=== PATIENT | female | born 1985 | race Caucasian/White ===

== ENCOUNTER 2020-12-28 19:34 | Inpatient (IN) | payer OTHER ==
[~2020-12-28] VITALS: Ht 165.1 cm; Wt 105.0 kg
--- NOTE | 2020-12-28 19:40 | NUR ---
PT AMBULATED TO ROOM 10 FOR TRIAGE, ASSESSMENT AND TREATMENT.
[2020-12-28 20:18] LABS: HEMATOCRIT 47.4 % (37.0-47.0); HEMOGLOBIN 15.7 g/dl (12.0-16.0); IMMATURE GRANULOCYTES 0.4 % (0.0-5.0); MEAN CELL VOLUME 83.9 fL CALC (80.0-100.0); MEAN CORPUSCULAR HGB 27.8 pG CALC (26.0-32.0); MEAN CORPUSCULAR HGB CONC 33.1 g/dL CAL (32.0-36.0); NEUT# 6.31 thou/uL (2.00-7.15); RED BLOOD COUNT 5.65 mill/uL (4.20-5.60); RED CELL DISTRI WIDTH 13.9 % (11.5-15.5)
--- NOTE | 2020-12-28 20:23 | NUR ---
RT AT BEDSIDE. PT HAS BEEN PLACED ON HIGH FLOW AT 15L VIA NON REBREATHER MASK.
[2020-12-28 20:29] LABS: ALBUMIN 3.8 g/dL (3.2-5.0); ALKALINE PHOSPHATASE 78 u/l (38-126); ANION GAP 19 (6-22 (CALC)); BILIRUBIN, TOTAL 0.6 mg/dL (0.0-1.4); BUN 19 mg/dL (7-17); BUN/CREATININE RATIO 18 (12-20 (CALC)); CARBON DIOXIDE 20 mmol/l (22-30); CHLORIDE 94 mmol/l (95-108); CREATININE 1.1 mg/dL (0.5-1.0); GFR 57 ML/MIN (>=60 (CALC)); GFR FOR AFR.AMER. > 60 ML/MIN (>=60 (CALC)); POTASSIUM 4.1 mmol/l (3.5-5.1); SGOT/AST 33 u/l (14-36); SODIUM 129 mmol/l (137-146); TOTAL PROTEIN 6.9 g/dL (6.3-8.2)
[2020-12-28 20:39] LABS: D-DIMER 0.48 mg/L (0.19-0.60)
[2020-12-28 20:41] LABS: MYOGLOBIN 98 ng/mL (0 - 62)
[2020-12-28 20:42] LABS: ACT PARTIAL THROMBO TIME 26.7 SECONDS (20.0-32.5); INTERNATIONAL NORMALIZED RATIO 0.9 RATIO (0.7-1.3); PROTHROMBIN TIME 9.7 SECONDS (9.0-12.5)
--- NOTE | 2020-12-28 21:14 | NUR ---
Reassessment of patient completed. No distress noted. PT TALKING TO FAMILY ON PHONE.
--- NOTE | 2020-12-28 21:56 | NUR ---
Reassessment of patient completed. No distress noted. Pt sitting up on gurney, for comfort. Discussed use of cpap and ICU admit with patient
--- NOTE | 2020-12-28 22:39 | NUR ---
Admission Note Report Given to: CHETAN Transported by: X Wheelchair Stretcher Transported with: X Nurse Transporter X Patent IV X O2 X Line O Scribe Operator Location: X ICU MS2
[2020-12-28 23:00] VITALS: BP 177/116
--- NOTE | 2020-12-28 23:00 | NUR ---
PATIENT ARRIVED TO UNIT VIA WC INTO ICU 4 AT 2230. ON NRB ON ARRIVAL. ASSISTED UP TO BSC PER PATIENT REQUEST. VOIDED. PATIENT ON HER MENSES, PROVIDED WITH HYGIENE ITEMS. ASSISTED INTO BED AND PLACED ON VAPOTHERM 30 L/ 80% O2 SAT 84% BREATH SOUNDS VERY DIMINISHED THROUGHOUT LUNG REICH. NS INFUISNG INTO LAC IV SITE. JEWELRY ESTIMATOR SHOWS ST. DISCUSSED PLAN OF CARE. PATIENT VERBALIZE UNDERSTANDING, RINFORCE PRN. CALL PLUMMER IN REACH.
[2020-12-28 23:15] VITALS: BP 158/101
[2020-12-28 23:30] VITALS: BP 169/92
[2020-12-29] VITALS (21 sets, daily range): BP systolic 128–216; BP diastolic 78–216
--- NOTE | 2020-12-29 01:00 | NUR ---
UPTO BSC VOIDED WITH MODERATE SOFT BM.
--- NOTE | 2020-12-29 02:15 | NUR ---
O2 SATS 81-82% INCREASED VAPOTHERM TO 40 L/90%
--- NOTE | 2020-12-29 02:50 | NUR ---
O2 SATS CONTINUE TO RUN IN THE LOW 80'S. RT HERE TO EVALUATE PATIENT. PATIENT PLACED ON CPAP BY RT, CPAP 12 CM/FIO2 60%
--- NOTE | 2020-12-29 05:30 | NUR ---
PATIENT HAS HAD 2 PITCHERS OF WATER TO DRINK SINCE SHE ARRIVED ON UNIT AND PROCEEDED TO HAVE A LARGE EMESIS THAT SHOT ACROSS ROOM. BATHED AND LINENS CHANGED. O2 SATS DROP WITH ANY ACTIVITY.
[2020-12-29 05:34] LABS: HEMATOCRIT 49.3 % (37.0-47.0); HEMOGLOBIN 15.9 g/dl (12.0-16.0); IMMATURE GRANULOCYTES 0.2 % (0.0-5.0); MEAN CELL VOLUME 85.1 fL CALC (80.0-100.0); MEAN CORPUSCULAR HGB 27.5 pG CALC (26.0-32.0); MEAN CORPUSCULAR HGB CONC 32.3 g/dL CAL (32.0-36.0); NEUT# 3.8 thou/uL (2.00-7.15); RED BLOOD COUNT 5.79 mill/uL (4.20-5.60); RED CELL DISTRI WIDTH 13.8 % (11.5-15.5)
[2020-12-29 05:58] LABS: ALBUMIN 3.7 g/dL (3.2-5.0); ALKALINE PHOSPHATASE 55 u/l (38-126); BILIRUBIN, TOTAL 0.8 mg/dL (0.0-1.4); BUN 23 mg/dL (7-17); BUN/CREATININE RATIO 22 (12-20 (CALC)); C-REACTIVE PROTEIN 8.3 mg/dL (0-0.9); CHLORIDE 99 mmol/l (95-108); GFR > 60 ML/MIN (>=60 (CALC)); GFR FOR AFR.AMER. > 60 ML/MIN (>=60 (CALC)); SGOT/AST 50 u/l (14-36); SODIUM 133 mmol/l (137-146)
[2020-12-29 06:29] LABS: ANION GAP 24 (6-22 (CALC)); CARBON DIOXIDE 15 mmol/l (22-30); POTASSIUM 5.1 mmol/l (3.5-5.1)
--- NOTE | 2020-12-29 09:21 | NUR ---
0800 AM BLOOD GLUCOSE FINGER STICK 433. GLUCOSE LAB RESULTS 551. SLIDING SCALE INSULIN GIVEN. DR VILLA MADE AWARE.
--- NOTE | 2020-12-29 19:00 | NUR ---
RECEIVED REPORT FROM EAMON RAMOS.
--- NOTE | 2020-12-29 20:00 | NUR ---
PATIENT IS AWAKE IN BED, ALERT AND ORIENTED X3, ABLE TO MAKE NEEDS KNOWN. NO COMPLAINTS OF PAIN VERBALIZED. RESPIRATIONS EVEN, CURRENTLY O2 VIA N/C VAPOTHERM 40L/100%. PATIENT HAS BEEN MAINTAINING SATURATIONS 88-94%. GLASS WORKER SHOWING SR IN THE 90S. VAD LAC INFUSING NS @ 100ML/HR. SKIN WARM AND DRY. URINAL AT BEDSIDE. ASSESSMENT COMPLETED AND CHARTED. BED IN LOW POSITION. CALL LIGHT WITHIN REACH.
--- NOTE | 2020-12-29 20:00 | NUR ---
PATIENT IS AWAKE IN BED, ALERT AND ORIENTED, ABLE TO MAKE NEEDS KNOWN. DENEIS PAIN. RESPIRATIONS EVEN. PATIENT ON CPAP AT 100% O2 AT THIS TIME. SUB ACUTE CARE NURSE ST 110'S. SKIN WARM AND DRY. VAD #20LAC INFUSING NS AT 100ML/HR. PURWICK IN PLACE. ASSESSMENT COMPLETED AND CHARTED. BED IN LOW POSITION. CALL LIGHT WITHIN REACH.
--- NOTE | 2020-12-29 20:16 | NUR ---
RT REPORTS PATIENT CPAP REDUCED FROM 100% TO 70%. O2 SAT 93%.
--- NOTE | 2020-12-29 20:32 | NUR ---
120CC COOL WATER GIVEN. TOLERATED WELL. CPAP PUT BACK IN PLACE. PATIENT TOLERATED WELL.
--- NOTE | 2020-12-29 21:16 | NUR ---
3 UNITS REGULAR INSULIN GIVEN FOR BS 243. 1/2 CUP APPLE JUICE GIVEN.
--- NOTE | 2020-12-29 22:11 | NUR ---
SPOKE WITH FATHER ABOUT PATIENT CONDITION.
--- NOTE | 2020-12-29 23:33 | NUR ---
PATIENT THREW UP IN CPAP MASK ABOUT 100CC LIQUID BROWN EMESIS. PATIENT CLEANED UP, NEW GOWN PUT ON. PATIENT IN NO ACUTE DISTRESS.
[2020-12-30] VITALS (24 sets, daily range): BP systolic 106–185; BP diastolic 60–109
--- NOTE | 2020-12-30 00:30 | NUR ---
BRIEF CHANGED. SATURATED. TOLERATED WELL. PATIENT ON MENSIS.
--- NOTE | 2020-12-30 01:29 | NUR ---
IV ZITHROMYCIN FINISHING, ROCPHIN IV READY TO BE HUNG. NO ACUTE DISTRESS NOTED.
--- NOTE | 2020-12-30 02:27 | NUR ---
PATIENT UNABLE TO RELAX AND SLEEP. ANXIOUS. 1 MG ATIVAN IV GIVEN.
--- NOTE | 2020-12-30 04:12 | NUR ---
PULSE OX UNPLUGGED FROM MONITOR. RECONNECTED. O2 SATURATION 92%.
[2020-12-30 06:18] LABS: HEMATOCRIT 48.7 % (37.0-47.0); HEMOGLOBIN 15.4 g/dl (12.0-16.0); IMMATURE GRANULOCYTES 0.2 % (0.0-5.0); MEAN CELL VOLUME 85.1 fL CALC (80.0-100.0); MEAN CORPUSCULAR HGB 26.9 pG CALC (26.0-32.0); MEAN CORPUSCULAR HGB CONC 31.6 g/dL CAL (32.0-36.0); NEUT# 6.77 thou/uL (2.00-7.15); RED BLOOD COUNT 5.72 mill/uL (4.20-5.60)
[2020-12-30 06:43] LABS: ALBUMIN 3.3 g/dL (3.2-5.0); ALKALINE PHOSPHATASE 67 u/l (38-126); ANION GAP 16 (6-22 (CALC)); BILIRUBIN, TOTAL 0.4 mg/dL (0.0-1.4); BUN 29 mg/dL (7-17); BUN/CREATININE RATIO 27 (12-20 (CALC)); C-REACTIVE PROTEIN 4.7 mg/dL (0-0.9); CARBON DIOXIDE 21 mmol/l (22-30); CHLORIDE 110 mmol/l (95-108); CREATININE 1.1 mg/dL (0.5-1.0); GFR 57 ML/MIN (>=60 (CALC)); GFR FOR AFR.AMER. > 60 ML/MIN (>=60 (CALC)); POTASSIUM 4.3 mmol/l (3.5-5.1); SGOT/AST 43 u/l (14-36); SODIUM 143 mmol/l (137-146); TOTAL PROTEIN 6.2 g/dL (6.3-8.2)
--- NOTE | 2020-12-30 06:44 | NUR ---
PATIENT THREW UP IN MASK AGAIN WITH SMALL AMOUNT BROWN EMESIS. PATIENT BEING CLEANED UP, CHANGED TO VAPOTHERM, GOWN CHANGED. RT AT BEDSIDE CHANGING PATIENT FROM CPAP TO VAPOTHERM.
--- NOTE | 2020-12-30 08:45 | NUR ---
RT MADE AWARE PT O2 SATS 81-84% ON 100% VAPOTHERM. PT INCREASED TO 40L ON VAPOTHERM. 02 SAT 87-88% CURRENTLY.
--- NOTE | 2020-12-30 09:50 | NUR ---
PT O2 SAT 83-84% RT MADE AWARE NOW PT ON C-PAP AT 100%. PT STATES, "I DON'T WANT THE TUBE." DR. OTTO MADE AWARE.
--- NOTE | 2020-12-30 12:35 | NUR ---
DR. OTTO SPOKE WITH PT FATHER VIA TELEPHONE. NOW SPEAKING WITH PT IN REGARDS TO WISHES TO WITHHOLD INTUBATION.
--- NOTE | 2020-12-30 13:06 | NUR ---
PT SIGNED DIRECTION TO WITHDRAW AND/OR WITHHOLD LIFE-SUSTAINING PROCEDURES CONSENT IN REGARDS TO WITHHOLDING RESPIRATORY SUPPORT.
--- NOTE | 2020-12-30 19:16 | NUR ---
SPO2 85% ON VAPO 40L WITH 100%/ NRM. PATIENT DESIRES TO LAY ON HER BELLY FOR SPO2 TO INCREASE. RN AWARE. WILL CALL RT OTHERWISE
--- NOTE | 2020-12-30 20:24 | NUR ---
PATIENT'S OXYGENATION NOT MAINTIANING IN THE 'S. INSTRUCTED AND DEMONSTRATED TO PATIENT HOW TO LYE PRONE. CURRENTLY PRONING. O2 SATURATION 90%. HAS REACHED 99%. NO ACUTE DISTRESS OBSERVED.
--- NOTE | 2020-12-30 22:09 | NUR ---
PATIENT CONTINUES TO SAT AT 84%. PATIENT HAS BEEN REPOSITIONED, SUPINE, WITHOUT IMPROVEMENT. PATIENT DOES NOT WANT THE CPAP. PATIENT IS A DNI. MOUTH SWABS GIVEN TO PATIENT FOR COMFORT. MOUTH VERY DRY.
--- NOTE | 2020-12-30 22:34 | NUR ---
AZITHROMYCIN IV INITIATED, ATIVAN 1 MG IV GIVEN FOR PATIENT COMFORT. IVABT INFUSING AT 125 ML/HR DUE TO VEIN IRRITATION.
--- NOTE | 2020-12-30 22:55 | NUR ---
Oxygen saturation not improving. RT called to place CPAP.
--- NOTE | 2020-12-30 23:00 | NUR ---
Patient took off mask. saturation 79%. RT at bedside.
--- NOTE | 2020-12-30 23:45 | NUR ---
PATIENT AWAKE SITTING ON SIDE OF BED, MASK NOT CONNECTED TO TUBING, TRYING TO GET OOB TO GO TO BATHROOM. INSTRUCTED PATIENT TO LYE BACK DOWN. PATIENT IN BED, BRIEF CHANGED, PATIENT CLEANED UP, BACK TO BED. ALARMS GOING OFF, CALLED RT TO FIX. RT AT BEDSIDE. PATIENT OK.
[2020-12-31] VITALS (20 sets, daily range): BP systolic 97–159; BP diastolic 75–104
--- NOTE | 2020-12-31 00:25 | NUR ---
patient pulled off CPAP. Oxygen saturations dropped to 64%. Mask replaced. Doing better now 87% and rising.
--- NOTE | 2020-12-31 01:50 | NUR ---
SPOKE WITH DR. OTTO ABOUT PATIENT CONDITION. NEW ORDERS RECEIVED. AWAITING PHARMACY VERIFICATION.
--- NOTE | 2020-12-31 02:32 | NUR ---
PATIENT TOOK OFF MASK AGAIN. OXYGEN SATURATION 60%. MASK REPLACE, O2 SATURATION MAINTANING 91%. MORPHINE IV GIVEN WITH POSITIVE EFFECT.
--- NOTE | 2020-12-31 03:09 | NUR ---
PATIENT CONTINUES TO UNFASTEN MASK. MASK CONTINUES TO BE REPLACED. PATIENT NOT TOLERATING WELL.
--- NOTE | 2020-12-31 03:44 | NUR ---
patient unfastened mask again. refastened.
--- NOTE | 2020-12-31 04:09 | NUR ---
0355 RT at bedside to change from CPAP to Vapotherm. Patient not tolerating CPAP. Oxygen 91%.
--- NOTE | 2020-12-31 05:33 | NUR ---
ASSISTED PATIENT TO LAY PRONE. OXYGEN SATURATION IMPROVED. 93%
--- NOTE | 2020-12-31 05:47 | NUR ---
PATIENT TOOK OF VAPOTHERM. OXYGEN FELL INTO THE 30'S. O2 PUT BACK INTO PLACE. PATIENT ASSISTED TO STOMACH. RE-EDUCATED PATIENT ON CONSEQUENCES OF NOT COMPLYING AND NOT WEARING OXYGEN. PATIENT ACKNOWLEDGED THAT SHE WILL IF SHE DOES NOT LISTEN AND WEAR OXYGEN.
[2020-12-31 06:02] LABS: HEMATOCRIT 51.3 % (37.0-47.0); HEMOGLOBIN 16.1 g/dl (12.0-16.0); MEAN CELL VOLUME 87.7 fL CALC (80.0-100.0); MEAN CORPUSCULAR HGB 27.5 pG CALC (26.0-32.0); MEAN CORPUSCULAR HGB CONC 31.4 g/dL CAL (32.0-36.0); RED BLOOD COUNT 5.85 mill/uL (4.20-5.60); RED CELL DISTRI WIDTH 14.3 % (11.5-15.5)
[2020-12-31 06:15] LABS: CREATININE 1.5 mg/dL (0.5-1.0); MAGNESIUM 2.9 mg/dL (1.6-2.3); POTASSIUM 4.3 mmol/l (3.5-5.1)
--- NOTE | 2020-12-31 11:15 | NUR ---
DR OTTO AND CASE MANAGEMENT SPOKING WITH PT IN REGARDS TO PT NOT WANTING DIALYSIS AND WISHES FOR HOSPICE.
--- NOTE | 2020-12-31 11:51 | NUR ---
TRANSPORT TO ARRIVED AROUND 1500.
--- NOTE | 2020-12-31 12:00 | NUR ---
HOSPICE SPEAKING WITH PT VIA TELEPHONE.
--- NOTE | 2020-12-31 18:50 | NUR ---
SBAR RECEIVED FROM RICHARD DOE. PATIENT SITTING UP IN BED WATCHING TELEVISION. ON BIPAP, SATURATION 100%. NO DISTRESS NOTED, DENIES PAIN. CALL LIGHT WITHIN REACH.
--- NOTE | 2020-12-31 23:30 | NUR ---
AJ GONZALES. OFFERED WATER.
[2021-01-01] VITALS (19 sets, daily range): BP systolic 114–178; BP diastolic 62–121
--- NOTE | 2021-01-01 01:20 | NUR ---
BIPAP ALARMING, UPON ENTERING ROOM PATIENT OUT OF BED ATTEMPTING TO PUSH BIPAP MACHINE. WHEN ASKED WHERE WAS SHE TRYING TO GO, SHE REPLIED THAT SHE DIDN'T KNOW. PATIENT ASSISTED BACK TO IN PRONE POSITION. BED ALARM ACTIVATED, CALL LIGHT WITHIN REACH.
--- NOTE | 2021-01-01 02:47 | NUR ---
BIPAP ALARMING. UPON ENTERING ROOM, PATIENT FOUND WITH MASK OFF, SATURATION 89%. ASSISTED WITH MASK BACK ON FACE, SATURATION JEAN TO 99%. PATIENT OFFERED WATER. DENIES PAIN AT THIS TIME. CALL LIGHT WITHIN REACH. BED ALARM ACTIVATED.
--- NOTE | 2021-01-01 04:41 | NUR ---
RESTING QUIETLY IN BED AT THE MOMENT. SATURATION 99% ON BIPAP. CALL LIGHT WITHIN REACH.
[2021-01-01 05:36] LABS: HEMOGLOBIN 15.5 g/dl (12.0-16.0); IMMATURE GRANULOCYTES 0.3 % (0.0-5.0); MEAN CELL VOLUME 88.9 fL CALC (80.0-100.0); MEAN CORPUSCULAR HGB CONC 30.4 g/dL CAL (32.0-36.0); NEUT# 5.7 thou/uL (2.00-7.15); RED BLOOD COUNT 5.74 mill/uL (4.20-5.60); RED CELL DISTRI WIDTH 14.1 % (11.5-15.5)
--- NOTE | 2021-01-01 05:42 | NUR ---
ASSISTED PATIENT TO BSC COMMODE 800ML CLEAR DARK BHARGAV URINE. SPONGE BATH PROVIDE WITH ASSISTANCE, ORAL CARE AND COMPLETE LINEN CHANGE. PATIENT TOLERATED WELL. URINE SAMPLE COLLECTED AT THIS TIME. PATIENT THEN ASSISTED BACK TO BED IN PRONE POSITION, SATURATION 98%. CALL LIGHT WITHIN REACH.
[2021-01-01 06:09] LABS: ALBUMIN 3.3 g/dL (3.2-5.0); BILIRUBIN, TOTAL 0.3 mg/dL (0.0-1.4); C-REACTIVE PROTEIN 1.5 mg/dL (0-0.9); CREATININE 1.4 mg/dL (0.5-1.0); POTASSIUM 4.3 mmol/l (3.5-5.1); TOTAL PROTEIN 6.4 g/dL (6.3-8.2)
[2021-01-01 06:18] LABS: URINE BILIRUBIN - DIPSTICK NEGATIVE (NEGATIVE); URINE BLOOD DIPSTICK LARGE (NEGATIVE); URINE COLOR YELLOW; URINE GLUCOSE - DIPSTICK 250 mg/dL (NEGATIVE); URINE KETONE NEGATIVE (NEGATIVE); URINE LEUK ESTERASE NEGATIVE (NEGATIVE); URINE PH 5.5 (4.5-8.0); URINE PROTEIN - DIPSTICK 30 mg/dL (NEG-TRACE); URINE SPECIFIC GRAVITY 1.025; URINE UROBILINOGEN - DIPSTICK 0.2 E.U./dL (0.2)
[2021-01-01 06:28] LABS: URINE NITRITE - DIPSTICK NEGATIVE (Negative)
[2021-01-01 06:30] LABS: URINE RBC >100 RBC/hpf (0-5); URINE WBC 0-2 WBC/hpf (0-5)
[2021-01-01 06:31] LABS: URINE SQUAMOUS EPITHELIAL CELL FEW EPI/hpf (0-FEW)
--- NOTE | 2021-01-01 07:00 | NUR ---
RECEIVED REPORT FROM RICHARD BERTRAND AT THIS TIME PATIENT IN BED WITH BI-PAP ON AND IN STABLE CONDITION.
--- NOTE | 2021-01-01 07:37 | NUR ---
placed pt on hhfnc for breakfast. miladys well at this time. rn in room c rt and pt. maintenance supervisor mechanical to monitor.
--- NOTE | 2021-01-01 08:00 | NUR ---
PATIENT SITTING UP IN BED AT THIS TIME BI-PAP ON AND SETTING ARE 20/10 32/100% AND SPO2 WAS 100%. PATIENT DENEIS ANY PAIN AT THIS TIME. EQUAL OPPORTUNITY OFFICER DONE SEE INTERVENTIONS. NO VISABLE EDEMA NOTED. PATIENT CURRENTLY IS ON DAY 2 OF HER MENSE AND STATES IT USUALLY LAST 5 DAYS. LUNG REICH REMAIN DIMINISHED IN ALL REICH AT THIS TIME. PATIENT WAS COVERED WITH 1UNIT OF NOVOLOG SLIDING SCALE INSULIN FOR A ACCU CHECK OF 172 AT THIS TIME. SIDERAILS ARE UP CALL LIGHT WITHIN REACH. PATIENT IS ALERT AND ORIENTED. VTC TECHNICIAN SHOWING S/R AT HR OF 84. WILL CONTINUE TO MONITOR.
--- NOTE | 2021-01-01 08:50 | NUR ---
PATIENT AT THIS TIME RETURNED BACK ON BI-PAP AND SPO2 IS 94% AT THIS TIME.
--- NOTE | 2021-01-01 10:00 | NUR ---
PATIENT ASSISTED TO BEDSIDE COMMODE AT THIS TIME. PATIENT DID HAVE 1 SMALL LOOSE DARK BROWN BM AND URINATED. PATIENT WAS THEN ASSISTED TO CHAIR AT THIS TIME BI-PAP REMAINS ON PATIENT SPO2 IS 98% AT THIS TIME. CALL LIGHT IS WITHIN REACH.
--- NOTE | 2021-01-01 10:28 | NUR ---
pt on niv in chair at bedside. sap business objects developer to monitor. nad.
--- NOTE | 2021-01-01 11:42 | NUR ---
PATIENT REMAINS UP IN CHAIR AT THIS TIME. PATIENT SWITCHED FROM BI-PAP TO VAPO-THERM FOR LUNCH AT THIS TIME. REMINDED PATIENT TO CONTINUE TO BREATH THROUGH HER NOSE AND SLOW HER BREATHING DOWN. PATIENT IS COMPLIANT WITH INSTRUCTIONS AND WILL CONTINUE TO MONITOR.
--- NOTE | 2021-01-01 12:56 | NUR ---
PATIENT REMAINS UP IN THE CHAIR AT THIS TIME. VAPO THERM ON AT 40L/100% AND SPO2 IS CURRENTLY 95%. PATIENT DENIES ANY PAIN AND IS EATING LUNCH AT THIS TIME. LAUNDRY ROOM ATTENDANT REACHING S/R HEART RATE OF 86 AT THIS TIME. CALL LIGHT IS WITHIN REACH.
--- NOTE | 2021-01-01 13:30 | NUR ---
PATIENT ASSITED TO BEDSIDE COMMODE AT THIS TIME ZACK URINATED 500 CC OF CLEAR YELLOW URINE AT THIS TIME. PATIENT THEN ASSISTED TO BED AT THIS TIME AND PLACED BACK ON BI-PAP AT THIS TIME. PATIENT TOLERATED MOVEMENT AND SPO2 REMAINED AT 97% AT THIS TIME. WILL CONTINUE TO MONITOR.
--- NOTE | 2021-01-01 13:36 | NUR ---
pt on niv at this time. nad. vss. home office claim specialist to monitor.
--- NOTE | 2021-01-01 13:43 | NUR ---
RESPIRATORY IN ROOM WITH PATIENT AT THIS TIME TO TRY PATIENT ON A VENTED MASK AT THIS TIME. WILL CONTINUE TO MONITOR.
--- NOTE | 2021-01-01 13:52 | NUR ---
per pt requst, system designer placed on o2 mask (venturi mask) at 05 fio2@15lpm. when pt is not moving spo2=87. pt states she feels so much better on this mask. system designer informed pt we will reasess at 150. pt and rn in agreement. system designer to monitor.
--- NOTE | 2021-01-01 14:00 | NUR ---
RT IN TO REPLACE VENTI MASK AND REPLACE BACK ONTO BI-PAP AT THIS TIME. WILL CONTINUE TO MONITOR.
--- NOTE | 2021-01-01 14:07 | NUR ---
PLACED BACK ON NIV PER PT SPO2. TITRATED PARAMTERS PER PT SPO2, AND COMFORT, NAD,VSS, LEATHER PRODUCTION ARTISAN TO MONITOR. RN AWARE OF ALL INFO COMMUNICATED IN THIS RECORD.
--- NOTE | 2021-01-01 14:07 | NUR ---
RT LAYTON SET BI-PAP SETTING TO 16/8 AT 80% AND SPO2 AT THIS TIME IS 97% AT THIS TIME. PATIENT RESTING AT THIS TIME. SIDERAILS ARE UP CALL LIGHT IS WITHIN REACH.
--- NOTE | 2021-01-01 16:00 | NUR ---
PATIENT RESTING COMFORTABLY IN BED AT THIS TIME. PATIENT REMAINS ON BIPAP AND SPO2 CURRENTLY IS 92%. ILLUSTRATOR SET SHOWING HR AT 84 BEATS/MIN AND BP CURRENTLY IS 147/99. SIDERAILS ARE UP X 2 CALL LIGHT IS WITHIN REACH. WILL CONTINUE TO MONITOR.
--- NOTE | 2021-01-01 16:40 | NUR ---
ACCU CHECK READING AT THIS TIME IS 282. PATIENT COVERED WITH 5 UNITS OF SLIDING SCALE NOVOLOG AT THIS TIME.
--- NOTE | 2021-01-01 17:29 | NUR ---
PATIENT ASSISTED TO BEDSIDE COMMODE AND TO RECLINERR AT THIS TIME. PATIENT NOW ON VAPO-THERM AND SPO2 IS 90% WILL CONTINUE TO MONITOR.
--- NOTE | 2021-01-01 17:30 | NUR ---
PATIENT UP IN CHAIR AT THIS TIME TRANSFER TABLE OPERATOR READING S/R AND HR OF 78 BP AT THIS TIME IS 155/93 VAPO THERM ON PATIENT AND SPO2 READING AT 98% CURRENTLY PATIENT SET UP FOR DINNER AT THIS TIME AND TOLERATING WATER.
--- NOTE | 2021-01-01 19:30 | NUR ---
pt awake in recliner; no apparent distress noted; pt offers no complaints; assessment completed at this time; pt alert and oriented; admits to pain in mouth; tongue noted dry but no sores apparent; no n/v noted; resp even and unlabored; lungs coarse throughout; skin color wnl; o2 per vapotherm at 40L and 100%; o2 sat 92%; dental officer dry cough noted; pt very talkative with no sob noted at this time; hr reg; strong pulses; no edema noted; st on monitor; abd soft with bs present; no bm noted per physician underwriter; pt admits to voiding without complication; no urine to inspect at this time; bsc; #20 flushed and patent to lac; no redness or edema noted at site; plan of care/ meds explained; ice water provided per pt request; call light within reach; will continue to monitor
--- NOTE | 2021-01-01 20:10 | NUR ---
awake in recliner; offers no complaints; sr on monitor; vapotherm continued; will continue to monitor
--- NOTE | 2021-01-01 20:30 | NUR ---
pm meds explained and administered; ice water provided as per request; #22 started to rw x1 attempt; #20 removed from lac; no redness or edema noted; snack provided; pt assisted to bsc; voided 600cc clear dk yellow urine; pt assisted back to bed; pt with frequent demands/ needs; reassured; will continue to monitor
--- NOTE | 2021-01-01 21:50 | NUR ---
pt noted with vapotherm off; o2 sat 30s; pt noted cyanotic; vapotherm placed in mouth and bipap applied at 100%; pt alert; o2 sat recovered quickly to mid 90s; importance of leaving oxygen in place; pt with excuses as to why she has removed o2/why she cant wear the bipap; RT at bedside; bipap applied; settings per RT; 16/8, 80% FiO2, rate of 22; o2 sat up o 96%; sr on monitor; will continue to monitor
--- NOTE | 2021-01-01 22:02 | NUR ---
received call from Shyla Ramirez; passcode verified; update provided; will continue to monitor
[2021-01-02] VITALS (23 sets, daily range): BP systolic 106–149; BP diastolic 59–95
--- NOTE | 2021-01-02 | NUR ---
resting in bed with eyes closed; no apparent distress noted; bipap intact and maintained; sr on monitor; iv intact and patent; call light within reach; will continue to monitor
--- NOTE | 2021-01-02 01:05 | NUR ---
o2 sat noted low 80s; rt at bedside; bipap changed to 100% FiO2; will continue to monitor closely
--- NOTE | 2021-01-02 02:00 | NUR ---
resting with eyes closed; bipap intact with 100% FiO2; iv intact; sr on monitor; call light within reach; will continue to monitor
--- NOTE | 2021-01-02 04:20 | NUR ---
awake in bed; offers no complaints; iv intact; sr on monitor; bipap intact and maintained; call light within reach
[2021-01-02 05:35] LABS: HEMATOCRIT 47.7 % (37.0-47.0); HEMOGLOBIN 14.9 g/dl (12.0-16.0); MEAN CELL VOLUME 86.6 fL CALC (80.0-100.0); MEAN CORPUSCULAR HGB CONC 31.2 g/dL CAL (32.0-36.0); RED BLOOD COUNT 5.51 mill/uL (4.20-5.60); RED CELL DISTRI WIDTH 13.5 % (11.5-15.5)
[2021-01-02 06:01] LABS: BUN 28 mg/dL (7-17); BUN/CREATININE RATIO 26 (12-20 (CALC)); CARBON DIOXIDE 26 mmol/l (22-30); CHLORIDE 106 mmol/l (95-108); CREATININE 1.1 mg/dL (0.5-1.0); GFR 57 ML/MIN (>=60 (CALC)); GFR FOR AFR.AMER. > 60 ML/MIN (>=60 (CALC)); POTASSIUM 4.1 mmol/l (3.5-5.1)
--- NOTE | 2021-01-02 06:05 | NUR ---
awake in bed; offers no complaints; bipap intact and maintained; sr on monitor; call light within reach
[2021-01-02 06:18] LABS: ANION GAP 11 (6-22 (CALC)); MAGNESIUM 1.9 mg/dL (1.6-2.3); SODIUM 139 mmol/l (137-146)
--- NOTE | 2021-01-02 07:00 | NUR ---
BSSR RECIEVED FROM RICHARD JONES. PT RESTING IN BED WITH EYES CLOSED. VSS, CALL LIGHT WITHIN REACH. DOES NOT APPEAR TO BE EXHIBITING ANY DISTRESS. SAFETY REVIEWED. WILL CONTINUE TO MONITOR.
--- NOTE | 2021-01-02 07:52 | NUR ---
pt placed on hhfnc or breakfast. rn in room c lens grinder and pt. pt to lwell. verbalizd understanding of deep breathing edeucation. rt to monitor.
--- NOTE | 2021-01-02 12:00 | NUR ---
PT RESTING WITH EYES CLOSED, WAITING TO EAT AFTER "NAP" WILL HOLD TRAY. PT CURRENTLY ON VAPOTHERM, REQUESTING TO BE PLACED BACK ON BIPAP WHILE RESTING. SPO2 QUICKLY RISES TO 95%. SETTING UNCHANGED. PT DENIES PAIN, SOB OR DISCOMFORT. CALL LIGHT WITHIN REACH. INSTRUCTED PT TO CALL FOR ASSISTANCE, VERBALIZES UNDERSTANDING.
--- NOTE | 2021-01-02 12:46 | NUR ---
will place on hhfnc for lunch. tower truck driver to monitor.
--- NOTE | 2021-01-02 18:19 | NUR ---
PT REQUESTING TO KNOW THE STATUS OF BROTHER WHO IS ALSO SICK IN SAME FACILITY. FAMILY NOTIFIED AT THIS TIME, FATHER (ANGELO) NOTIFIED AND STATES HE WILL UPDATE PATIENT ON FAMILY STATUS.
--- NOTE | 2021-01-02 19:18 | NUR ---
ASSESSMENT DONE O2 CHANGED FROM BIPAP TO VAPOTHERM 40L 100% FIO2 SO SHE CANEAT MONITOE SHOWS SR 81. IV HEP LOCKED COOPERATIVE STATES SHE WILL FOLLOW REQUESTS TONIGHT
--- NOTE | 2021-01-02 20:00 | NUR ---
BACK ON BIPAP 100% 16/8 SAT 94%
--- NOTE | 2021-01-02 21:02 | NUR ---
RESTING WITH EYES CLOSED MONITOR SHOWS SR RATE 71 O2 SAT 89
--- NOTE | 2021-01-02 21:59 | NUR ---
RESTING IN BED EYES OPEN
--- NOTE | 2021-01-02 22:01 | NUR ---
MOTHER CALLED TO ASK ABOUT PT CODE GIVEN UPDATED VIA PHONE
--- NOTE | 2021-01-02 22:18 | NUR ---
PT REFUSES TO PRONE
--- NOTE | 2021-01-02 23:40 | NUR ---
RESTING WITH EYES CLOSED OW SAT 84-89% ON BIPAP 100% 16/8 MONITOR SHOWS SR
[2021-01-03] VITALS (24 sets, daily range): BP systolic 110–158; BP diastolic 73–98
--- NOTE | 2021-01-03 00:37 | NUR ---
UP TO BSC AND BACK TO BED WITH 1 ASSIST TOLERATED WELL
--- NOTE | 2021-01-03 01:09 | NUR ---
remains awake watching tv voices no c/o
--- NOTE | 2021-01-03 01:41 | NUR ---
RESTING WITH EYES CLOSED O2 SAT 83%. ROUSED PT TOLD HER TO LIE ON HER STOMACH OR SIDE REFUSES
--- NOTE | 2021-01-03 02:48 | NUR ---
BIPAP OFF OF SHORT MOMENT FOR SIPS OF WATER ORAL MUCOSA PINK AND DRY NO SORES NOTED
--- NOTE | 2021-01-03 03:43 | NUR ---
RESTING IN BED WITH EYES CLOSED MONITOR SHOWS SR RATE 68 O2 SAT 91%
--- NOTE | 2021-01-03 04:35 | NUR ---
LABS DRAWN BY PHLEBOTOMY
[2021-01-03 04:46] LABS: HEMATOCRIT 44.6 % (37.0-47.0); HEMOGLOBIN 14.2 g/dl (12.0-16.0); IMMATURE GRANULOCYTES 0.3 % (0.0-5.0); MEAN CELL VOLUME 84.3 fL CALC (80.0-100.0); MEAN CORPUSCULAR HGB 26.8 pG CALC (26.0-32.0); MEAN CORPUSCULAR HGB CONC 31.8 g/dL CAL (32.0-36.0); NEUT# 8.78 thou/uL (2.00-7.15); RED BLOOD COUNT 5.29 mill/uL (4.20-5.60); RED CELL DISTRI WIDTH 13.2 % (11.5-15.5)
[2021-01-03 05:06] LABS: ALBUMIN 2.8 g/dL (3.2-5.0); ALKALINE PHOSPHATASE 48 u/l (38-126); ANION GAP 11 (6-22 (CALC)); BUN 26 mg/dL (7-17); BUN/CREATININE RATIO 30 (12-20 (CALC)); C-REACTIVE PROTEIN 1.2 mg/dL (0-0.9); CARBON DIOXIDE 26 mmol/l (22-30); CHLORIDE 103 mmol/l (95-108); CREATININE 0.9 mg/dL (0.5-1.0); GFR > 60 ML/MIN (>=60 (CALC)); GFR FOR AFR.AMER. > 60 ML/MIN (>=60 (CALC)); POTASSIUM 3.7 mmol/l (3.5-5.1); SGOT/AST 22 u/l (14-36); SODIUM 136 mmol/l (137-146); TOTAL PROTEIN 5.5 g/dL (6.3-8.2)
[2021-01-03 05:20] LABS: BILIRUBIN, TOTAL 0.5 mg/dL (0.0-1.4)
--- NOTE | 2021-01-03 05:41 | NUR ---
PT AWAKE WATCHING TV VOICES N0 C/O
--- NOTE | 2021-01-03 06:17 | NUR ---
awake sitting up in bed watching tv
--- NOTE | 2021-01-03 08:00 | NUR ---
PATIENT IS A/OX3, ABLE TO MAKE NEEDS KNOWN TO STAFF. GOT HER OUT OF BED AND INTO THE CHAIR FOR BREAKFAST. PLACED VAPOTHERM 40L 100%. DENIES PAIN OR DISCOMFORT AT THIS TIME. 3MM PERRLA, BRISK BILATERAL EYES. NORMAL HEART SOUNDS, NORMAL SINUS RYTHEM PER MONITOR READINGS. DIMINISHED LUNG SOUNDS THROUGHOUT. ACTIVE BOWEL SOUNDS. SOFT, OBESE, NON TENDER ABDOMEN. NO EDEMA PRESENT AT THIS TIME. EUQLA STRONG HAND RESOURCING CONSULTANT, NO ARM OR LEG DRIFTS NOTED. STRONG PULSES. EDUCATION WAS PORVIDED ON OXYGEN DEVICES. SAFETY MEASURES IN PLACE. CALL LIGHT IN REACH. WILL COTNINUE TO MONITOR PER HOSPITAL'S PROTOCOL.
--- NOTE | 2021-01-03 10:00 | NUR ---
PATIENT USED THE CALL LIGHT TO INFORM ME SHE IS "NODDING OFF AND WANT TO TAKE A NAP IN BED". SHE ALOS STATED THAT SHE UNDERSTANDS OUR GOAL FOR TODAY IS TO STAY UP IN THE CHAIR MUCH POSSIBLE AND THAT WHEN SHE WAKES UP FROM HER NAP SHE WILL BE SITTING IN THAT CHAIR WITH VAPOTHERM ON. SHE IS CURENTLY ON THE BIPAP MACHINE TO PREVENT HER FROM DROPPING IN HER O2 LEVELS. BED SHEETS WERE CHANGED TO CLEAN ONES PRIOR TO GETTING INTO BED. WHEN OFFERED HER A BED BATH SHE STATED SHE WILL HOLD OFF ON THAT TILL LATER IN THE DAY.
--- NOTE | 2021-01-03 12:00 | NUR ---
PATIENT IS UP TO THE CHAIR, WITH VAPOTHERM. EATING HER LUNCH. O2 SATS ARE STABLE.
--- NOTE | 2021-01-03 13:54 | NUR ---
PATIENT IS GIVING HERSELF A BEDBATH. INFORMED HER THAT SHE NEEDS TO DO IT HERSELF AND WHAT SHE CANT DO I WILL HELP HER WITH. I WANT HER TO DO BETTER AND NOT DEPEND ON US FOR THINGS SHES CAPABLE OF DOING HERSELF. AFTER EXPLAINING HER MY REASONING SHE STATED SHE UNDERSTOOD, CALL LIGHT WITHIN HER REACH. BED BATH SET HER FOR HER WITH WARM WATER.
--- NOTE | 2021-01-03 14:20 | NUR ---
PATIENT WASHED HERSELF UP, DECLINED ANY NEED FOR FURTHER ASSIATNCE WITH BEDBATH. GOT HER BACK UP IN BED WITH VAPOTHERM 40L 100% CONTINUED. FRESH ICE WATER AND MILK PER HER REQUEST. BED SHEETS WERE CHANGED AGAIN, SHE HAD AN ACCIDENT AND URINATED ON THE BED.
--- NOTE | 2021-01-03 16:00 | NUR ---
PATIENT IS SLEEPING IN CHAIR.
--- NOTE | 2021-01-03 18:00 | NUR ---
PATIENT FINISHED HER DINNER, REQUESTED TO GET BACK IN BED. INFORMED HER IF SHE DOES SO WE WILL NEED TO PUT THAT BIPAP MASK BACK ON BECAUSE SHE DOES DROP TO THE MID TO LOW 70'S IN THE BED WITH JUST THE VAPOTHERM ON. SHE STATED OKAY, I UNDERSTAND I STILL WOULD LIKE TO GET IN BED. PATIENT USED BSC, GOT BACK IN BED AND BIPAP WAS PLACED BACK ON HER.
--- NOTE | 2021-01-03 18:45 | NUR ---
GAURAVAR RECEIVED FROM RICHARD CANDELARIA. PATIENT RESTING QUIETLY IN BED. NO DISTRESS NOTED. DENIES PAIN. CALL LIGHT WITHIN REACH.
--- NOTE | 2021-01-03 19:45 | NUR ---
ASSESSMENT COMPLETE. PATIENT SITTING UP IN BED WATCHING TV. PATIENT ON BIPAP 17/11, RATE 44, 100%; TOLERATING WELL. FLUIDS OFFERED. DENIES PAIN AT THIS TIME NO DISTRESS NOTED. CALL LIGHT WITHIN REACH.
--- NOTE | 2021-01-03 21:12 | NUR ---
PM MEDS ADMINISTERED TOLERATED WELL. PATIENT REQUESTED SLEEPING MED ALSO. FLUIDS GIVEN, OFFERED TOILETING BUT DENIED. INSTRUCTED TO POSITION RIGHT LATERAL, SATURATION JEAN TO 92%. PATIENT DENIES CONCERNS AT THIS TIME AND VERBALIZES NEEDS ARE MET AT THIS TIME. CALL LIGHT WITHIN REACH, INSTRUCTED TO CALL FOR ASSISTANCE.
--- NOTE | 2021-01-03 22:53 | NUR ---
ASSIST TO BSC, VOIDED 700ML CLEAR BHARGAV URINE WITHOUT DIFFICULTY. PATIENT SHORT OF BREATH WITH EXERTION, DE-SAT TO LOW 80'S. RECOVERS WELL WHEN BIPAP APPLIED. ANTIBIOTICS ADMINISTERED. FLUIDS OFFERED BUT DECLINES. NO CONCERNS EXPRESSED AT THIS TIME. CALL LIGHT WITHIN REACH.
[2021-01-04] VITALS (13 sets, daily range): BP systolic 122–160; BP diastolic 72–97
--- NOTE | 2021-01-04 00:26 | NUR ---
PATIENT RESTING QUIETLY IN BED. NO DISTRESS NOTED. CALL LIGHT WITHIN REACH.
--- NOTE | 2021-01-04 01:26 | NUR ---
RESTING QUIETLY. SATURATION DROPPED TO 85%, NO DISTRESS NOTED. ASSISTED TO PRONE POSITION, RECOVERED WELL SATURATION JEAN TO 97%.
--- NOTE | 2021-01-04 04:38 | NUR ---
RESTING QUIETLY EYES CLOSED. NO DISTRESS NOTED. CALL LIGHT WITHIN REACH.
[2021-01-04 05:04] LABS: HEMOGLOBIN 14.3 g/dl (12.0-16.0); MEAN CELL VOLUME 82.5 fL CALC (80.0-100.0); MEAN CORPUSCULAR HGB 27.4 pG CALC (26.0-32.0); MEAN CORPUSCULAR HGB CONC 33.3 g/dL CAL (32.0-36.0); RED BLOOD COUNT 5.21 mill/uL (4.20-5.60); RED CELL DISTRI WIDTH 12.9 % (11.5-15.5)
[2021-01-04 05:09] LABS: ANION GAP 10 (6-22 (CALC)); BUN 28 mg/dL (7-17); BUN/CREATININE RATIO 32 (12-20 (CALC)); CARBON DIOXIDE 27 mmol/l (22-30); CHLORIDE 102 mmol/l (95-108); CREATININE 0.9 mg/dL (0.5-1.0); GFR > 60 ML/MIN (>=60 (CALC)); GFR FOR AFR.AMER. > 60 ML/MIN (>=60 (CALC)); MAGNESIUM 1.8 mg/dL (1.6-2.3); POTASSIUM 3.3 mmol/l (3.5-5.1); SODIUM 134 mmol/l (137-146)
--- NOTE | 2021-01-04 07:37 | NUR ---
PATIENT IS A/O X3, DENIES PAIN OR DISCOMFORT AT THIS TIME. USED THE CALL LIGHT TO USE THE BATHROOM, A FEW MINTUES GO BACK AFTER I GOWN UP TO GO INTO THE ROOM, SHE TELLS ME "I TRIED TO WAIT BUT I END UP PEEING MYSELF". CHANGED OUT THE BED SHEETS, PARTIAL BEDBATH, GOWN CHANGED. PATIENT UP IN CHAIR WITH VAPOTHERM. BREAKFAST ON HER BEDSIDE TABLE. SLURS WHEN SPEAKING, [place] BASELINE FOR HER TO DO SO. 3MM PERRLA. CLEAR TOP AND DIMINISHED BOTTOM LUNG BASES. NORMAL HEART SOUNDS, NORMAL SINUS RYTHEM ON MONITOR. VITAL SIGNS ARE STABLE. ACTIVE BOWEL SOUNDS. SOFT OBESE ABDOMEN. DENIES ANY TENDERNESS ON ABDOMEN. NO EDEMEA PRESENT AT THIS TIME. STRONG PULSES. SAFETY MEASURES IN PLACE, CALL LIGHT IN REACH. WILL COTNINUE TO MONITOR PER HOSPITAL'S POLICY.
--- NOTE | 2021-01-04 09:51 | NUR ---
PATIENT WAS LISTENING TO HER [employer] SESSIONS, APPEARS TO BE SLEEPING, DESATS TO 60'S. INFROMED HER THAT SHE NEEDED TO STAY UP, SHE DENIES SLEEPING. GAVE HER SOME MORE TIME, AFTER TALKING TO HER SHE FELL BACK TO SLEEP A FEW MINTUES LATER. WOKE UP HER AND INFORMED HER SHE NEEDED TO GO BACK ON THE BIPAP. WE WILL TRY AGAIN FOR LUNCH TO SIT UP WITH VAPOTHERM ON. SHE STATED SHE UNDERSTANDS.
--- NOTE | 2021-01-04 10:00 | NUR ---
PATIENT'S MOTHER CALLED. GAVE ME HER CODE. UPDATE WAS PORVIDED.
--- NOTE | 2021-01-04 12:00 | NUR ---
PATIENT IS UP IN CHAIR EATING LUNCH
--- NOTE | 2021-01-04 14:00 | NUR ---
PATIENT IS IN BED WITH BIPAP ON
--- NOTE | 2021-01-04 16:00 | NUR ---
PATIENT USED THE BSC.
--- NOTE | 2021-01-04 18:00 | NUR ---
SPOKE TO PATIENT ABOUT STAYING IN THE CHAIR FOR A LITTLE LONGER, HER O2 SATS BEEN THE BEST ITS BEEN ALL DAY, SHE STATED THATS GOOD SHE WILL STAY IN THE CHAIR TILL NEXT SHIFT COMES IN SHE WILL ASK TO GO BACK TO BED.
--- NOTE | 2021-01-04 18:59 | NUR ---
SBAR REPORT RECEIVED FROM RICHARD CANDELARIA. PATIENT OOB TO CHAIR. NO DISTRESS NOTED AT THIS TIME. CALL LIGHT WITHIN REACH.
[2021-01-04 19:50] LABS: URINE BILIRUBIN - DIPSTICK NEGATIVE (NEGATIVE); URINE BLOOD DIPSTICK TRACE-INTACT (NEGATIVE); URINE CLARITY CLEAR; URINE COLOR YELLOW; URINE GLUCOSE - DIPSTICK >=1000 mg/dL (NEGATIVE); URINE KETONE NEGATIVE (NEGATIVE); URINE LEUK ESTERASE NEGATIVE (Negative); URINE NITRITE - DIPSTICK NEGATIVE (Negative); URINE PH 5.5 (4.5-8.0); URINE PROTEIN - DIPSTICK TRACE mg/dL (NEG-TRACE); URINE UROBILINOGEN - DIPSTICK 0.2 E.U./dL (0.2)
--- NOTE | 2021-01-04 21:00 | NUR ---
ASSESSMENT COMPLETE. PATIENT ASSISTED BACK TO BED AND PLACED ON BIPAP, TOLERATED WELL. MEDICATION ADMINISTERED. DENIES PAIN AT THIS TIME. NO CONCERNS EXPRESSED. CALL LIGHT WITHIN REACH.
[2021-01-05] VITALS (19 sets, daily range): BP systolic 101–156; BP diastolic 65–91
--- NOTE | 2021-01-05 00:09 | NUR ---
INCONTINENT OF URINE. ASSISTED TO BSC, PERICARE COMPLETE. LINEN CHANGE PROVIDED. ASSISTED BACK TO BED, POSITIONED FOR COMFORT. OFFERED FLUIDS. D/C RIGHT WRIST ACCESS, NEW START LEFT FOREARM #22. ANTIBIOTICS STARTED. PATIENT NOW RESTING COMFORTABLY, CALL LIGHT WITHIN REACH. NO CONCERNS EXPRESSED.
--- NOTE | 2021-01-05 04:21 | NUR ---
ASSIST TO BSC, SHORT OF BREATH WITH EXERTION. 200ML BHARGAV COLORED URINE. ASSIST BACK TO BED RECOVERED WELL. DENIES PAIN AT THIS TIME. FLUIDS OFFERED. PATIENT LYING PRONE TOLERATING WELL, SATURATION 97%. CALL LIGHT WITHIN REACH.
--- NOTE | 2021-01-05 07:06 | NUR ---
ACCU CHECK SHOWS READING OF 88 NO SLIDING SCALE COVERAGE NEEDED AT THIS TIME.
--- NOTE | 2021-01-05 08:00 | NUR ---
PATIENT IN BED AT THIS TIME. DISH WASHER DONE SEE INTERVENTIONS. PATIENT REMAINS ON BI-PAP AT 18/6@ 100%. PATIENTS LUNG REICH ARE CLEAR IN UPPER AND DIMINISHED IN MIDDLE/LOWER LUNG REICH. PATIENT RESPIRATIONS ARE LABORED AT THIS TIME AND PATIENT INSTRUCTED ON SLOWING DOWN RESPIRATIONS AND CONCENTRATE ON BREATHING SLOW DEEP BREATHS. PATIENT DOES PRESENT WITH DRY COUGH AT THIS TIME. PATIENT REMAINS ON UNIT AIDE TECH AND HR IS 88 AND IS SINUS RYTHMA. CALL LIGHT IS WITHIN REACH OF PATIENT AND PATIENT ADVISE THAT SHE WILL BE MOVED TO CHAIR FOR BREAKFAST AND TRIAL ON VAPO-THERM. PATIENT AGREES WITH PLAN.
--- NOTE | 2021-01-05 08:02 | NUR ---
ATTMPTED TO PLACE PATIENT ON VAPOTHERM SO SHE COULD EAT WHILE UP IN CHAIR. PT HAD DESATS DOWN TO THE 30'S, BUT RECOVERED TO 84%. PT APPEARED TO BE IN DISTRESS. PT PLACED BACK ON BIPAP, WITH SATS RETURNING TO 95%. RN UPDATED.
[2021-01-05 08:11] LABS: HEMATOCRIT 44.1 % (37.0-47.0); HEMOGLOBIN 14.4 g/dl (12.0-16.0); IMMATURE GRANULOCYTES 0.8 % (0.0-5.0); MEAN CELL VOLUME 83.2 fL CALC (80.0-100.0); MEAN CORPUSCULAR HGB 27.2 pG CALC (26.0-32.0); MEAN CORPUSCULAR HGB CONC 32.7 g/dL CAL (32.0-36.0); NEUT# 14.43 thou/uL (2.00-7.15); RED BLOOD COUNT 5.3 mill/uL (4.20-5.60); RED CELL DISTRI WIDTH 13.2 % (11.5-15.5)
--- NOTE | 2021-01-05 08:15 | NUR ---
PATIENT ASSISTED TO CHAIR AT THIS TIME. BI-PAP REMOVE AND PATIENT REPLACED ON VAPO-THERM PATIENT STARTED TO DESTAT IN THE 30'S NON REBREATHER PLACED AND PATIENT SPO2 CLIMBED TO 80 % AND JEREMY RT WAS IN ROOM AND DECISION MADE TO PLACE PATIENT BACK ONTO BI-PAP AT THIS TIME. PATIENT'S SPO2 AFTER BEING PLACED ON BI-PAP IS NOW MAINTAINING AT 92% AND PATIENT REMAINS UP IN CHAIR. WILL CONTINUE TO MONITOR PATIENT.
[2021-01-05 08:50] LABS: ALBUMIN 2.8 g/dL (3.2-5.0); ALKALINE PHOSPHATASE 55 u/l (38-126); ANION GAP 10 (6-22 (CALC)); BILIRUBIN, TOTAL 0.5 mg/dL (0.0-1.4); BUN 27 mg/dL (7-17); BUN/CREATININE RATIO 32 (12-20 (CALC)); CARBON DIOXIDE 26 mmol/l (22-30); CHLORIDE 105 mmol/l (95-108); CREATININE 0.8 mg/dL (0.5-1.0); GFR > 60 ML/MIN (>=60 (CALC)); GFR FOR AFR.AMER. > 60 ML/MIN (>=60 (CALC)); POTASSIUM 3.3 mmol/l (3.5-5.1); SGOT/AST 24 u/l (14-36); SODIUM 138 mmol/l (137-146); TOTAL PROTEIN 5.8 g/dL (6.3-8.2)
--- NOTE | 2021-01-05 08:56 | NUR ---
PATIENT SITTING UP IN CHAIR BI-PAP REMOVED TO GIVE MORNING MEDICATIONS AT THIS TIME. SPO2 DROPPED TO 68% MEDICATIONS GIVEN PATIENT REPLACED BACK ON BI-PAP AT THIS TIME AND SPO2 RETURNED TO 90%. WILL CONTINUE TO MONITOR.
[2021-01-05 09:22] LABS: C-REACTIVE PROTEIN 14.9 mg/dL (0-0.9)
--- NOTE | 2021-01-05 11:00 | NUR ---
PATIENT REMAINS UP IN CHAIR AT THIS TIME. ACCU CHECK PREFORMED AND RESULTED AT 120. NO SLIDING SCALE COVERAGE NEEDED. HR AT THIS TIME IS 94 S/R AND SPO2 IS 94% ON BIPAP. PATIENT DENEIS ANY NEEDS CURRENTLY AND DENIES PAIN. CALL LIGHT IS WITHIN REACH AT THIS TIME. WILL CONTINUE TO MONITOR.
--- NOTE | 2021-01-05 12:00 | NUR ---
PATIENT ON VAPO-THERM AND NON RE-BREATHER AT THIS TIME. SPO2 IS 88% AND PATIENT WAS ABLE TO EAT 100% OF HER LUNCH. PATIENT DENINS ANY SHORTNESS OF BREATH AND OR PAIN. JEREMY RT IN ROOM PATIENT EATING AT THIS TIME. PATIENT MANAGER READING READING HR OF 98 IN S/R AND SPO2 IS 88% AT CURRENT TIME. PATIENT CALL LIGHT AND PERSONAL BELONGING ARE WITHN REACH. WILL CONTINUE TO MONITOR.
--- NOTE | 2021-01-05 12:22 | NUR ---
PT PLACED ON VAPOTHERAM FOR EATING. PT DID REQUIRE NRB ADDED BETWEEN BITES. BUT SATS REMAINED 84%-88% WHILE EATING. PT SATS AT 90% AFTER EATING, AND REMAINS ON VAPOTHERM WITH NRB.
--- NOTE | 2021-01-05 13:00 | NUR ---
PATIENT ASSISTED TO BEDSIDE COMMODE TO URINATE AT THIS TIME. PATIENT RETURNED BACK TO BED AT THIS TIME AND BIPAP PLACED. SPO2 CURRENTLY IS 81%. PATIENT DEINES ANY SHORTNESS OF BREATH AND IS REMINDED TO SLOW DOWN BREATHING AND CONCENTRATE ON DEEP CONSISTANCE BREATHS THROUGH THE NOSE. SPO2 AT THIS TIME JUMPED UP TO 92% AND IS SUSTAINING AT THIS TIME. PATIENT WILL CONTINUE TO BE MONITORED. SIDERAILS ARE UP AND PERSONAL BELONGINGS AND CALL LIGHT WITHIN REACH.
--- NOTE | 2021-01-05 15:25 | NUR ---
PATIENT ASSISTED UP TO BEDSIDE COMMODE AT THIS TIME. BM MODERATE AMOUNT SOFT IN CONSISTANCY AND 350ML'S OF URINE. PATIENT DENEIS BEING SHORT OF BREATH. H20 OFFERED AND DRANK 90 ML'S AT THIS TIME. PATIENT ASSISTED BACK TO BED SIDERAILS ARE UP CALL LIGHT WITHIN REACH.
--- NOTE | 2021-01-05 16:00 | NUR ---
PATIENT LAYING IN BED AT THIS TIME WITH BIPAP ON. SPO2 CURRENTLY IS 86%. PATIENT DENIES ANY SHORTNESS OF BREATH AND DOES FOLLOW COMMANDS TO SLOW BREATHING DOWN AND DEEP BREATH WHEN ASKED. ETCHER HAND IS SHOWING PATIENT IN SINUS RYTHM AND HR IS 86. SIDERAILS ARE UP CALL LIGHT WITHIN REACH. WILL CONTINUE TO MONITOR.
--- NOTE | 2021-01-05 18:00 | NUR ---
PATIENT REMAINS IN BED AT THIS TIME BI-PAP ON AT THIS TIME SPO2 CURRENTLY IS 88%. PATIENT OFFER PLUMACORT AND WATER AT THIS TIME. PATIENTS AIRLINE OPERATIONS AGENT IS READING HR S/R AT 90BPM AND RESPIRATIONS ARE 36 AND LABORED. PATIENT RE-EDUCATED ON SLOWING BREATHING DOWN AND CONCENTRATE ON DEEP BREATHS. PATIENT IS COMPLIANT AT THIS TIME. PATIENT DENIES ANY PAIN AT THIS TIME. SIDERAILS ARE UP X 2 CALL LIGHT AND PERSONAL ITEMS WITHIN REACH. WILL CONTINUE TO MONITOR.
--- NOTE | 2021-01-05 19:35 | NUR ---
PATIENT IS AWAKE, ORIENTED X4. LAYS IN HIGH CAGE'S. SELF REPOSITIONS. IS ON BIPAP, FIO2 100%, 18/6. RESP RATE 31/SHALLOW, BECOMES MODERATELY SOB WHEN SPEAKING OR WHEN TAKES SIPS OF WATER. ICED WATER PROVIDED. NURSE ASSESSMENT PERFORMED. SR ON TELEMETRY, HR 80'S, BP 140'S SYSTOLIC, SPO2 DROPS TO 70'S WHEN TAKES SIPS OF WATER, DOES RECOVER QUICKLY WHEN BIPAP MASK PLACED BACK ON, SPO2 92%. SKIN IS WARM/DRY, DOES HAVE UE BILAT BRUISING. DOES HAVE A DRY COUGH AND REPORTS DRY THROAT. LFA IV INTACT, FLUSHES APPROPRIATELY, SALINE LOCKED. POC FOR TONIGHT DISCUSSED. REQUESTS DINNER, AGREES TO DRINK PULMICORT SHAKE, DID EXPLAIN WITH HER SPO2 DROPPING TO 70'S, THE WORK OF EATING/CHEWING WOULD NOT HELP HER BREATHING. CALL LIGHT WITHIN REACH.
--- NOTE | 2021-01-05 20:35 | NUR ---
PATIENT TOLERATES INSULIN AND LOVENOX INJECTION. PATIENT ABLE TO SWALLOW BEDTIME MEDICATIONS, SONATA PROVIDED PER REQUEST. PATIENT ALSO GIVEN PULMICORT SHAKE, WAS GIVEN AT TWO DIFFERENT TIMES DUE TO DESATING INTO 60'S. RECOVERS TO HIGH 80'S. WAS OFFERED BATHE FOR TONIGHT, REFUSES. REPORTS WHEN SHE IS READY TO USE BS SHE WILL USE CALL LIGHT, BECAME TIRED AND SOB WITH DRINKING MEDS AND SHAKE. CALL LIGHT WITHIN REACH. WILL CONTINU TO MONITOR.
--- NOTE | 2021-01-05 20:59 | NUR ---
PATIENT ASSISTED WITH USING BEDSIDE COMMODE. VOIDS 900 ML/ YELLOW/CLEAR. DESATS TO LOW 80'S WITH BIPAP MASK ON WIHEN UP TO BSC. RECOVERS AND LAYS ON HER R-SIDE, SPO2 NOW IS 94%, RESP RATE 30'S/SHALLOW. DOES BECOME SEVERLY SOB WITH ACTIVITY. FAN TURNED ON PER REQUEST. CALL LIGHT WITHIN REACH.
--- NOTE | 2021-01-05 21:16 | NUR ---
PATIENT REGISTERED NURSING PROFESSOR LIGHT, REPORTS SHE NEEDS TO BURP, REQUESTS FOR BIPAP MASK TO BE TAKEN OFF.
--- NOTE | 2021-01-05 22:08 | NUR ---
PATIENT'S MOTHER CALLED HERE FOR UPDATES, WAS MADELEINE TO PROVIDE PASSCODE. UPDATES PROVIDED.
--- NOTE | 2021-01-05 23:00 | NUR ---
WATER PROVIDED. ACCEPTED LOZENGE, DID NOT LIKE FLAVOR AND SPIT IT OUT. HAD A PACK FROM HOME AND IS NOW CHEWING ON IT.
[2021-01-06] VITALS (22 sets, daily range): BP systolic 112–176; BP diastolic 74–98
--- NOTE | 2021-01-06 00:10 | NUR ---
ANTIBIOTIC INFUSING PROPERLY THROUGH LFA IV. PATIENT GIVEN WATER PER REQUEST. LAYS ON HER LEFT SIDE. SPO2 LOW 80'S TO 90%.
--- NOTE | 2021-01-06 00:14 | NUR ---
NOTIFIED RT OF PATIENT'S SPO2 DROPS TO LOW 80'S WHEN SLEEPING, RT ADJUSTED BIPAP SETTINGS.
--- NOTE | 2021-01-06 00:32 | NUR ---
RT IN ROOM TO ADJUST BIPAP SETTINGS, PATIENT SPO2 HIGH 70'S. PATIENT DIRECTED TO PULL SELF UP IN BED AND LAYS IN HIGH FOWLR'S NOW. WILL CONTINUE TO MONITOR. SPO2 NOW 92%.
--- NOTE | 2021-01-06 03:45 | NUR ---
PATIENT REQUESTS MEDIACTION TO HELP HER RELAX AFTER GETTING UP TO THE BSC ANDSTRATED TO COUGH, BECAME SEVERLY SOB. ATIVAN IV PROVIDED.
--- NOTE | 2021-01-06 04:35 | NUR ---
SPO2 HIGH 70'S-80'S. PATIENT LAYS IN BED WITH EYES CLOSED. WAS DIRECETED TO LAY ON HER SIDE, PILLOW PLACED ON HER BACK. WILL CONTINUE TO MONITOR.
--- NOTE | 2021-01-06 05:00 | NUR ---
CLIP AND HANGER ATTACHER MARINA IN ROOM FOR AM BLOOD DRAW.
--- NOTE | 2021-01-06 05:58 | NUR ---
PATIENT SPO2 83%. PATIENT DIRECTED TO PULL SELF UP, WAS SAT UP IN HIGH CAGE'S. SPO2 86%. ANTIBIOTIC INFUSING NOW. NO NEEDS AT THIS TIME.
[2021-01-06 06:02] LABS: HEMATOCRIT 41.6 % (37.0-47.0); HEMOGLOBIN 13.4 g/dl (12.0-16.0); IMMATURE GRANULOCYTES 0.7 % (0.0-5.0); MEAN CELL VOLUME 85.2 fL CALC (80.0-100.0); MEAN CORPUSCULAR HGB 27.5 pG CALC (26.0-32.0); MEAN CORPUSCULAR HGB CONC 32.2 g/dL CAL (32.0-36.0); NEUT# 11.35 thou/uL (2.00-7.15); RED BLOOD COUNT 4.88 mill/uL (4.20-5.60); RED CELL DISTRI WIDTH 13.4 % (11.5-15.5)
[2021-01-06 06:17] LABS: ALBUMIN 2.7 g/dL (3.2-5.0); ALKALINE PHOSPHATASE 57 u/l (38-126); ANION GAP 14 (6-22 (CALC)); BILIRUBIN, TOTAL 0.5 mg/dL (0.0-1.4); BUN 30 mg/dL (7-17); BUN/CREATININE RATIO 27 (12-20 (CALC)); CARBON DIOXIDE 25 mmol/l (22-30); CHLORIDE 104 mmol/l (95-108); CREATININE 1.1 mg/dL (0.5-1.0); GFR 57 ML/MIN (>=60 (CALC)); GFR FOR AFR.AMER. > 60 ML/MIN (>=60 (CALC)); POTASSIUM 3.9 mmol/l (3.5-5.1); SGOT/AST 17 u/l (14-36); SODIUM 139 mmol/l (137-146); TOTAL PROTEIN 5.6 g/dL (6.3-8.2)
--- NOTE | 2021-01-06 06:30 | NUR ---
PATIENT MANAGER VALUATION LIGHT. REQUESTED WATER. PROVIDED MOUTH MISTERIZER FOR DRY/CHAPPED MOUTH/LIPS. HAS A DRY TRANSPORT TANK TECHNICIAN COUGH. LAYS ON HER R-SIDE. SPO2 LOW 80'S WHEN LAYING HIGH CAGE'S. WILL CONTINUE TO MONITOR.
--- NOTE | 2021-01-06 08:20 | NUR ---
DURING MORNING [facility] ADMINISTERING PO MEDS PT SWITCHED FROM CPAP TO VAPOTHERM 40L 100% FIO2. PT DESATED FROM 87% TO 48%. TOLERATED PO MEDS WELL PLACED BACK ON CPAP. 02 SAT NOW 78%.
--- NOTE | 2021-01-06 09:39 | NUR ---
DR ORTEGA WAS IN TO SEE PT. NEW ORDERS FOR NS @ 80ML/HR RECIEVED.
--- NOTE | 2021-01-06 10:02 | NUR ---
MOTHER СЕРГЕЙ CALLED TO RECEIVE PT UPDATE.
--- NOTE | 2021-01-06 11:15 | NUR ---
Patient is not a good candidate for PT intervention today. Patient failed vapo therm treatment initiation 2 x and patient is still on Bi-pap treatment.
--- NOTE | 2021-01-06 11:31 | NUR ---
PT CODED DURING ROUNDS. PT FOUND ON FLOOOR. ONE ROUND OF CHEST COMPRESSIONS COMPLETED, AND NO OTHER INTERVENTION NEEDED. PT REMAINS ON BIPAP AND IS AWAKE AND TALKING.
--- NOTE | 2021-01-06 11:41 | NUR ---
1120 FOUND PT FACE DOWN ON FACE HEAD FACING BIPAP MACHINE. URINE ON THE FLOOR NEAR PT. CALLED TO PT NO VERBAL RESPONSE. SHOOK PT NO RESPONSE. FELT FOR CAROTID PULSE NO PULSE FOUND. RT ON SITE. PT PLACED SUPINE ON THE FLOOR AND COMPRESSIONS STARTED. DURING COMPRESSIONS PT STARTED OPENING AND CLOSING EYES. CAROTID AND FEMORAL PULSE PALPABLE. JULISSA LIFT USED TO GET PT BACK TO BED. RECONNECTED TO CARDIAC MONITORS. RODRIGUEZ CATH PLACED. MADE AWARE. 1140 FATHER ANGELO PEOPLES MADE AWARE OF EVENT.
--- NOTE | 2021-01-06 14:39 | NUR ---
PULMO CONSULT DONE WITH DR CHAPMAN
--- NOTE | 2021-01-06 16:59 | NUR ---
RESTING IN BED CHEST RISING AND FALLING.
--- NOTE | 2021-01-06 18:35 | NUR ---
PRN LABETALOL GIVEN FOR SB/P >160.
--- NOTE | 2021-01-06 19:30 | NUR ---
PATIENT IS AWAKE, LAYS IN CAGE'S POSITION. IS ORIENETED X4. NEUROLOGICALLY STABLE. BILAT DRY KILN WORKER STRONG. FOLLOWS DIRECTIONS AND ANSWERS QUESTIONS APPROPRIATELY ALTHOUGH IS HARD TO UNDERSTAND DUE TO MOUTH/LIPS DRY/CHAPPED. BILAT PUPILS BRISK/REACTIVE/4 MM. SIP OF WATER WAS PROVIDED. MOUTH WAS CLEANED WITH WET WASH CLOTH. NURSE ASSESSMENT WAS PERFORMED. DISCUSSED IMPORTANCE OF OXYGENATION, LAYING PRONE, ALSO ASKED IF SHE WAS DO NOT INTUBATE AND PT REPORTS THAT IS WHAT SHE WANTS. LFA IV INTACT, NS INFUSING PER ORDERS. RODRIGUEZ CATHETER INTACT, URINE YELLOW/CLEAR. HR 90'S TO LOW 100'S, SINUS. BP 160'S SYSTOLIC. BED LINEN AND GOWN WAS CHANGED.
--- NOTE | 2021-01-06 20:05 | NUR ---
PATIENT WAS GIVEN ATIVAN IV PER PT REQUEST, IT WAS GIVEN BEFORE ASSISTING WITH LAYING IN PRONE POSITION. SPO2 DROPPED TO 70'S WHILE TURNING AND SLOW INCREASED TO 80'S WHILE RESTING WITH EYES CLOSED. WAS REASSURED EACH TIME. IS CALM NOW.
--- NOTE | 2021-01-06 20:05 | NUR ---
PATIENT WAS GIVEN ATIVAN IV PER PT REQUEST WAS GIVEN BEFORE ASSISTING WITH LAYING IN PRONE POSITION. SPO2 DROPPED TO 70'S WHILE TURNING AND SLOWLY INCREASED TO 80'S WHILE RESTING WITH EYES CLOSED. WAS REASSURED EACH TIME.
--- NOTE | 2021-01-06 20:17 | NUR ---
SPO2 NOW UP TO 90% -91% WHILE LAYING PRONE.
--- NOTE | 2021-01-06 20:17 | NUR ---
SPO2 NOW 90%-91% WHILE LAYING PRONE AND RESTING WITH EYES CLOSED.
--- NOTE | 2021-01-06 20:33 | NUR ---
MARZENA FROM RADIOLOGY CALLED HERE TO COORDINATE WHEN PATIENT WILL BE TAKEN DOWN. I HAVE EXPLAINED PATIENT IS UNSTABLE RESPIRATORY HOLLINS, I WILL NOTIFY IF ANY CHANGES.
--- NOTE | 2021-01-06 21:14 | NUR ---
PATIENT REPOSITIONED HERSELF TO HER R-SIDE LEANING TOWARDS HER BACK. NEEDS FREQUENT REMINDER. WAS LAYED BACK PRONE. NEW IV PLACE TO LEFT HAND 22 G DUE TO LFA LEAKING. IV AND SUBCUTANEOUS MEDICATIONS PROVIDED. SPO2 86%. RESP RATE 30.
--- NOTE | 2021-01-06 21:50 | NUR ---
PATIENT STARTS PULLING GOWN OFF. STATES, "I FEEL SICK." DENIES NAUSEA AT THIS TIME. WILL CONTINUE TO MONITOR. LAYED BACK IN PRONE POITION, SPO2 91%.
--- NOTE | 2021-01-06 22:55 | NUR ---
PATIENT TURNS ON HER BACK. WAS PULLED UP. REQUESTS WATER, PROVIDED. SPO2 83%.
[2021-01-07] VITALS (23 sets, daily range): BP systolic 105–173; BP diastolic 75–111
--- NOTE | 2021-01-07 00:54 | NUR ---
ATIVAN IV PROVIDED PER PATIENT REQUEST, WAS ASSISTED WITH LAYING PRONE. SPO2 NOW 91%.
--- NOTE | 2021-01-07 03:39 | NUR ---
WATER PROVIDED TO PATIENT. PATIENT SPIT UP PHLEGM, MOUTH CARE PROVIDED. SITS IN HIGH CAGE'S POSITION. SPO2 87%. DIRECTED TO TAKE DEEP, SLOW BREATHES. FOLLOWS DIRECTIONS.
[2021-01-07 05:49] LABS: HEMATOCRIT 44.7 % (37.0-47.0); HEMOGLOBIN 13.9 g/dl (12.0-16.0); MEAN CELL VOLUME 86.8 fL CALC (80.0-100.0); MEAN CORPUSCULAR HGB CONC 31.1 g/dL CAL (32.0-36.0); NEUT# 9.29 thou/uL (2.00-7.15); RED BLOOD COUNT 5.15 mill/uL (4.20-5.60); RED CELL DISTRI WIDTH 13.6 % (11.5-15.5)
--- NOTE | 2021-01-07 05:50 | NUR ---
IV ANTIBIOTIC INFUSING NOW. PATIENT REQUESTED PULMICORT SHAKE, WAS ABLE TO DRINK ALMOST ALL OF SHAKE. ATTEMPTED TO LAY PRONE, LAYS HALF WAY PRONE.
[2021-01-07 06:11] LABS: ALBUMIN 2.8 g/dL (3.2-5.0); ALKALINE PHOSPHATASE 67 u/l (38-126); ANION GAP 14 (6-22 (CALC)); BILIRUBIN, TOTAL 0.5 mg/dL (0.0-1.4); BUN 26 mg/dL (7-17); BUN/CREATININE RATIO 26 (12-20 (CALC)); C-REACTIVE PROTEIN 8.9 mg/dL (0-0.9); CARBON DIOXIDE 24 mmol/l (22-30); CHLORIDE 108 mmol/l (95-108); GFR > 60 ML/MIN (>=60 (CALC)); GFR FOR AFR.AMER. > 60 ML/MIN (>=60 (CALC)); POTASSIUM 4.4 mmol/l (3.5-5.1); SGOT/AST 25 u/l (14-36); SODIUM 141 mmol/l (137-146); TOTAL PROTEIN 5.6 g/dL (6.3-8.2)
--- NOTE | 2021-01-07 06:30 | NUR ---
PATIENT REQUESTS SIP OF WATER, PROVIDED. DID NOT LAY BACK PRONE, SITS IN HIGH CAGE'S. SPO2 LOW 80'S.
--- NOTE | 2021-01-07 07:03 | NUR ---
PATIENT PLACED ON BEDPAN
--- NOTE | 2021-01-07 08:22 | NUR ---
SWITCHED FROM BIPAP TO VAPOTHERM 40L 100% FIO2 FOR PO MED ADMINISTRATION. 02 SAT DROPPED FROM 79% TO 55%. TOLERATED MED ADMINISTRATION. PLACED BACK ON BIPAP 21/03 100% 02 SAT NOW 80%.
--- NOTE | 2021-01-07 19:00 | NUR ---
PATIENT HAD X-LARGE/LOOSE INCONTINENT BM. WAS WASHED UP. LINEN CHANGED. PULLED UP. LAYS IN SEMI FOWLE'S. SPO2 86%, RESP RATE 40'S. ON BIPAP FIO2 100%. WAS INSTRUCTED SLOW, DEEP BREATHES AND TO NOT TALK AND FOCUS ON BREATHING. CALL LIGHT WITHIN REACH.
--- NOTE | 2021-01-07 20:53 | NUR ---
PATIENT PULLED DOWN BIPAP MASK FROM HER NOSE, WAS YELLING ALOUD, "HELP." WENT IN THE ROOM AND SHE ASKED FOR WATER. I EXPLAINED TO HER IT IS IMPORTANT TO NOT PULL ON MASK, HER SPO2 DROPPED TO 40'S. EXPLAINED SHE NEED TO FOCUS ON BREATHING AND WAIT FOR HER SPO2 NUMBERS TO BE MORE STABLE TO BE ABLE TO HAVE A DRINK. PROVIDED PULMICORT SHAKE AND HAD A SIP OF WATER. PATIENT ABLE TO SWALLOW BEDTIME MEDS. IV DECADRON PROVIDED, IV INTACT, IV FLUIDS INFUSING PROPERLY. SPO2 70'S NOW. CALL LIGHT WITHIN REACH.
--- NOTE | 2021-01-07 21:55 | NUR ---
PATIENT'S AUNT CALLED HERE, PROVIDED PASSCODE, UPDATES GIVEN.
--- NOTE | 2021-01-07 22:00 | NUR ---
PATIENT LINE APPLIANCE ASSEMBLER LIGHT, REPORTS SHE HAS TO VOID, WAS REMINDED SHE HAS CATHETER IN PLACE. ATIVAN IV PROVIDED. CALL LIGHT WITHIN REACH.
--- NOTE | 2021-01-07 23:12 | NUR ---
PATIENT SITS ON SIDE OF BED. REPORTS SHE HAD TO VOMIT, IV ZOFRAN PROVIDED. DID PROVIDED RELIEF AND PATIENT ABLE TO LASY SEMI CAGE'S IN BED. CLOSES EYES, RESP RATE 30'S WHEN NOT EXERTED. SPO2 80%.
--- NOTE | 2021-01-07 23:35 | NUR ---
PATIENT BEGINS TO PULL ON MASK, WAS EXPLAINED IF SHE KEPT PULLING ON IT, IT WOULD NOT PROVIDE HER THE O2 SUPORT SHE NEEDS AT THIS TIME.
[2021-01-08] VITALS (24 sets, daily range): BP systolic 132–197; BP diastolic 66–110
--- NOTE | 2021-01-08 00:26 | NUR ---
patient reports she has to have a bm. did have incontinent bm and finsihed on the bedpan. loose/brown bm noted. pericare provided/ buttocks washed up and ointment applied due to red rash on buttocks/periarea. patient assited to lay on her left side. spo2 80%. rests with eyes closed.
--- NOTE | 2021-01-08 02:04 | NUR ---
patient sits up on side of bed, loosens mask from face, desats to 30's. ws instructed to lay back in bed. was pulled up max assist. lays in semi-plaza's.
--- NOTE | 2021-01-08 02:31 | NUR ---
patient begins to pull of gown. reports she is hot. patient pulled herself up, gown placed back on and fan turned on. call light within reach.
--- NOTE | 2021-01-08 05:00 | NUR ---
patient had moderate bm/loose/brown. soiled the bed. bed linen changed, pericare provided, tracy care provided. gown changed. ativan iv provided. lays in semi plaza's, sr 95 bpm, spo2 70's to low 80's. bp wnl. call light within reach.
[2021-01-08 05:28] LABS: HEMATOCRIT 45.2 % (37.0-47.0); HEMOGLOBIN 13.9 g/dl (12.0-16.0); MEAN CELL VOLUME 88.8 fL CALC (80.0-100.0); MEAN CORPUSCULAR HGB 27.3 pG CALC (26.0-32.0); MEAN CORPUSCULAR HGB CONC 30.8 g/dL CAL (32.0-36.0); RED BLOOD COUNT 5.09 mill/uL (4.20-5.60)
[2021-01-08 05:47] LABS: ALBUMIN 2.8 g/dL (3.2-5.0); ALKALINE PHOSPHATASE 69 u/l (38-126); ANION GAP 12 (6-22 (CALC)); BILIRUBIN, TOTAL 0.4 mg/dL (0.0-1.4); BUN 31 mg/dL (7-17); BUN/CREATININE RATIO 28 (12-20 (CALC)); CARBON DIOXIDE 26 mmol/l (22-30); CHLORIDE 112 mmol/l (95-108); CREATININE 1.1 mg/dL (0.5-1.0); GFR 57 ML/MIN (>=60 (CALC)); GFR FOR AFR.AMER. > 60 ML/MIN (>=60 (CALC)); POTASSIUM 4.5 mmol/l (3.5-5.1); SGOT/AST 19 u/l (14-36); SODIUM 146 mmol/l (137-146); TOTAL PROTEIN 5.8 g/dL (6.3-8.2)
--- NOTE | 2021-01-08 06:31 | NUR ---
PATIENT SITS UP TO THE SIDE OF THE BED. LOOSENS MASK FROM FACE. SPO2 DROPS TO 30'S. WAS INSTRUCTED TO LAY BACK IN BED. SPO2 NOW 80%.
--- NOTE | 2021-01-08 08:30 | NUR ---
MED ADMINISTRATION TOLERATED. O2 SAT DIPS DOWN INTO THE 40s WHILE TAKING MEDS. BACK ON BIPAP 100% FIO2. 02 SAT NOW IN THE 70s.
--- NOTE | 2021-01-08 10:02 | NUR ---
DR. CINTRON IN TO SEE PT. SPOKE WITH PT FATHER ANGELO OVER THE PHONE IN REGARDS TO PT BASELINE COGNITIVE ABILITIES AND PT WISHES ON DNI. HANDHELD PHONE IN ROOM SO FATHER CAN SPEAK WITH PT. ADVISED ON OPTIONS IN REGARDS TO RESP CARE. O2 SATS CONTINUES IN THE 60s-70s WHILE ON BIPAP 100% F102. PT STATES, "I NEED MORE TO THINK ABOUT IT" IN REGARDS TO INTUBATION.
--- NOTE | 2021-01-08 11:37 | NUR ---
no changes in respiratory paramters at this time. pt in bed, no acute distress noted. folding machine feeder to monitor.
--- NOTE | 2021-01-08 13:37 | NUR ---
MOTHER AND FATHER VISITING OUTSIDE OF PT ROOM.
--- NOTE | 2021-01-08 14:42 | NUR ---
PHARMACY CALLED ABOUT ORDER FOR ACTEMRA IN REGARDS TO IF PT WANTS TO TRY MADE. EDUCATIONAL PRINTOUT PROVIDED FROM PHARMACY. PT MADE AWARE AND IS AGREEABLE FOR USE.
--- NOTE | 2021-01-08 14:51 | NUR ---
no changes at this time. job placement specialist to monitor.
--- NOTE | 2021-01-08 15:40 | NUR ---
IV ACTEMRA INFUSING. LOOSE STOOL X3 NOTED DURING INFUSION.
--- NOTE | 2021-01-08 18:45 | NUR ---
SBAR RECEIVED FROM RICHARD DOE. PATIENT LYING QUIETLY IN BED. CALL LIGHT WITHIN REACH.
--- NOTE | 2021-01-08 20:15 | NUR ---
PATIENT FOUND WITH MASK FROM FACE SITTING AT BEDSIDE, SATURATION 58%. ENTERED ROOM TO PROVIDE ASSISTANCE PLACING MASK BACK ON WHEN PATIENT BECAME UNRESPONSIVE AND CYANOTIC. FLEX RUIZ CALLED AT THIS TIME. PATIENT ASSISTED TO SUPINE POSITION, PULSE PRESENT. AFTER BACKBOARD PLACED, PATIENT REGAINED CONSCIOUSNESS. SATURATION SLOWLY JEAN TO 80%. PATIENT PLACED IN RIGHT LATERAL RECUMBENT, SATURATION 84%
[2021-01-09] VITALS (33 sets, daily range): BP systolic 109–205; BP diastolic 73–128
--- NOTE | 2021-01-09 00:10 | NUR ---
PATIENT INCONTINENT OF STOOL. BED BATH AND LINEN CHANGE PROVIDED.
--- NOTE | 2021-01-09 00:43 | NUR ---
SATURATION 77% PATIENT INSTRUCTED TO PRONE AND REFUSED. REPOSITIONED TO SIDELYING SATURATION JEAN TO 80%.
--- NOTE | 2021-01-09 04:25 | NUR ---
PATIENT FOUND AGAIN UNRESPONSIVE WITH MASK OFF, CYANNOTIC, SATURATION 25%. MASK REAPPLIED AND STERNAL RUB GIVEN, PATIENT AROUSED. SATURATION SLOWLY JEAN TO 70%
[2021-01-09 05:42] LABS: HEMATOCRIT 49.3 % (37.0-47.0); HEMOGLOBIN 14.9 g/dl (12.0-16.0); IMMATURE GRANULOCYTES 2.2 % (0.0-5.0); MEAN CELL VOLUME 89.6 fL CALC (80.0-100.0); MEAN CORPUSCULAR HGB 27.1 pG CALC (26.0-32.0); MEAN CORPUSCULAR HGB CONC 30.2 g/dL CAL (32.0-36.0); NEUT# 11.8 thou/uL (2.00-7.15); RED BLOOD COUNT 5.5 mill/uL (4.20-5.60)
--- NOTE | 2021-01-09 06:32 | NUR ---
pt miladys well at this time. nad. vss. no changes in respiratory paramters at this time. agricultural systems specialist to monitor.
--- NOTE | 2021-01-09 06:50 | NUR ---
ASSUMED CARE OF PT AFTER BEDSIDE REPORT FROM RICHARD FELIX. PT REMINDED TO LEAVE BIPAP ON AND TRY NOT TO TALK HER O2 SAT WAS IN THE 70S. PT COULD NOT EXPRESS ANY FURTHER NEEDS.
[2021-01-09 06:56] LABS: ALKALINE PHOSPHATASE 81 u/l (38-126); ANION GAP 11 (6-22 (CALC)); BUN 27 mg/dL (7-17); BUN/CREATININE RATIO 27 (12-20 (CALC)); C-REACTIVE PROTEIN 2.2 mg/dL (0-0.9); CARBON DIOXIDE 27 mmol/l (22-30); CHLORIDE 114 mmol/l (95-108); GFR > 60 ML/MIN (>=60 (CALC)); GFR FOR AFR.AMER. > 60 ML/MIN (>=60 (CALC)); POTASSIUM 4.4 mmol/l (3.5-5.1); SODIUM 148 mmol/l (137-146); TOTAL PROTEIN 6.1 g/dL (6.3-8.2)
[2021-01-09 07:01] LABS: BILIRUBIN, TOTAL 0.6 mg/dL (0.0-1.4); SGOT/AST 35 u/l (14-36)
--- NOTE | 2021-01-09 09:06 | NUR ---
MEDS ADMINSTERED PER EMAR, ORAL CARE PROVIDED, PT PROVIDED SIPS OF WATER WITH MEDS. DANIE CARE PROVIDED. PT ENCOURAGED TO SLOW BREATHING, AND LEAVE THE MASK ON. PT INDICATED NO FURTHER NEEDS AT THIS TIME
--- NOTE | 2021-01-09 10:53 | NUR ---
PROVIDED DANIE CARE POST INCONTINENT BM, RE ENFORCED LEAVING BIPAP MASK ON.
--- NOTE | 2021-01-09 11:04 | NUR ---
no chnages in respiratroy paramters at this time. stone rigger to monitor.
--- NOTE | 2021-01-09 12:47 | NUR ---
RE ENFORCED LEAVING THE BIPAP MASK ON, DISCUSSED WITH PT THAT SHE STILL WANTED TO BE A DNI, ALSO TALKED ABOUT OPTIONS WITH COMFORT CARE. PT DENIES AND STATES SHE STILL WANTS TO BE A DNI AND A FULL CODE. PT NONCOMPLAINT WITH LEAVIN BIPAP MASK IN PLACE
--- NOTE | 2021-01-09 14:06 | NUR ---
pt trying to climb out of bed, claiming she has no breath. enocouraged to lay on side and rest. educated that the bipap is set as high as we can, and she is a dni, and has had all prn medication. pt re enforced she is a dni. re enforced to not touch/ pull/ or take off bipap mask.
--- NOTE | 2021-01-09 15:05 | NUR ---
PT HAD INCONTINENT BM AND WAS FOUND TO HAVE IT ON HER HAND, BED, CALL LIGHT, AND LEGS DESPITE HAVING A BRIEF IN PLACE. PT EDUCATED ON USING CALL LIGHT FOR NEEDS, AND IMPORTANCE OF NOT PULLING AT BIPAP MASK.
--- NOTE | 2021-01-09 16:15 | NUR ---
PT RANG CALL PLUMMER, AND STATED SHE NOW WANTS TO BE INTUBATED. STATES SHE CAN NO LONGER BREATHE.
--- NOTE | 2021-01-09 16:20 | NUR ---
CALLED AND NOTIFIED HIM PT WAS RESINDING HER DNI AND WAS REQUESTING INTUBATION. HE STATED TO CALL ER DOC AND FAMILY
--- NOTE | 2021-01-09 16:21 | NUR ---
CALLED PTS DAD AND MOTHER AND NOTIFIED THEM OF PT CHOICE. THEY AGREED. PT INDICATED SHE WANTS HER DAD TO MAKE ALL FURTHER HEALTHCARE DECISIONS.
--- NOTE | 2021-01-09 16:45 | NUR ---
PT INTUBATED BY AFTER PUSHING 20MG ATIMADATE, AND 100MG OF ROCS UNDER HIS DIRECTION WITH [place]AYTON RT AT BEDSIDE ALSO. THEN PLACED A RIJ TRIPLE LUMEN, NO NOTED COMPLICATIONS DURING THIS TIME, NO S/S OF DISTRESS WERE NOTED.
--- NOTE | 2021-01-09 19:30 | NUR ---
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
--- NOTE | 2021-01-09 20:00 | NUR ---
mutliple staff remains at bedside; assessment completed at this time; pt intubated and sedated; pupils equal and reactive; no s/sx of pain/ facial grimaces noted; no active vomiting noted at this time; resp even and unlabored/ tachypneic; lungs clear/ diminished; skin color wnl; vent intact and maintained with settings of AC mode, rate 30, TV 40, peep 15.0, 100% FiO2; 8 ETT intact secured at the 23cm cecil; orally and ETT suctioned; hr reg; strong pulses; no edema noted; st on monitor; scds placed bilat at this time; abd soft with bs hypoactive; pt cleansed for loose dk green stool; excoriation noted to perineal; barrier cream applied; tracy to gravity draining well; TLC patent to RIJ with ivf propofol gtt at 50mcg/kg/min; all lumens flushed and patent with brisk blood return; no redness or edema nored at site; restraints released and reapplied for for nursing care/ pt noted reaching up when restraints released; xray at bedside for tube placement confirmation; will continue to monitor
--- NOTE | 2021-01-09 20:10 | NUR ---
o2 sat dropping to mid 60s to low 70s; multiple staff remain at bedside; pt proned x5 staff; tolerated well; o2 sat immed improved to 89-90%; foam placed to face to prevent breakdown; pt noted reaching up and restless; MD to be contacted for additional sedation; propofol gtt increased to 55mcg/kg/min; will continue to monitor closely
--- NOTE | 2021-01-09 20:20 | NUR ---
Dr Harrington called for additional sedation; order receieved and on chart; Dr Hernandez to be contacted for additional orders/needs; will continue to monitor
--- NOTE | 2021-01-09 22:00 | NUR ---
call placed to Dr Hernandez; update provided on the events prior to; MD informed of tachycardia; orders received and on chart
--- NOTE | 2021-01-09 22:08 | NUR ---
received call from aunt; passcode verified; update provided
[2021-01-10] VITALS (54 sets, daily range): BP systolic 85–173; BP diastolic 50–98
--- NOTE | 2021-01-10 00:05 | NUR ---
vented and sedated; vent intact and maintained; meds administered; st on monitor; lopressor iv administered slowly for sustained tachycardia; tracy to gravity; bleeding noted from RIJ site; will continue to monitor
--- NOTE | 2021-01-10 00:15 | NUR ---
[id number]- bleeding noted from RIJ/ dressing saturated; pt repositioned x4 staff to high left side; RT at [facility] to monitor ETT; dressing changed using sterile technique; sutures noted intact x3; all lumens flused and brisk blood return noted; st on monitor; o2 sats dropped to 77% with repositioning; oral care provided with suctioning; pt noted with what appears to be vomit on linen and foam pillow; creamy/yellowish thick substance noted as well; proned; restraints reinforced after rom provided for upper extremities; will continue to monitor closely
--- NOTE | 2021-01-10 01:15 | NUR ---
o2 sat up to 88% proned
--- NOTE | 2021-01-10 02:00 | NUR ---
remains proned; vent intact and maintained; tracy to gravity; st on monitor 89-90% Spo2; will continue to monitor
--- NOTE | 2021-01-10 04:00 | NUR ---
intubated and sedated; vent intact and maintained; iv intact and patent; propofol/versed gtt cont; tracy to gravity; restraints released for rom; repositioned in bed; st on monitor; will continue to monitor
--- NOTE | 2021-01-10 05:30 | NUR ---
central line insertion site oozing bllod; dressing noted with lg amount of blood; dressing to be changed; pt currently proned; line checked for patency; all lumens flushed well with brisk blood aspirate; will continue to monitor
--- NOTE | 2021-01-10 05:50 | NUR ---
xray at bedside
--- NOTE | 2021-01-10 06:22 | NUR ---
intubated and sedated; vent intact and maintained; st on monitor; tracy to gravity;
--- NOTE | 2021-01-10 06:36 | NUR ---
RECIEVED PT ON ALL DOCUMENTED PARAMTERS. NO CHANGES TO VENTILATOR PARAMTERS AT THIS TIME. PT CURRENTLY PRONE IN POSITIONONG C SPO2 89 HR 111 RR 30. DIRECTOR OF HOME HEALTH SERVICES TO MONITOR.
--- NOTE | 2021-01-10 06:56 | NUR ---
TITRATED VENT PARAMETERS PER PT SPO2. DAKOTAH WELL AT THIS TIME. AERONAUTICAL ENGINEER TO MONITOR.
[2021-01-10 07:36] LABS: HEMATOCRIT 45.9 % (37.0-47.0); HEMOGLOBIN 13.6 g/dl (12.0-16.0); IMMATURE GRANULOCYTES 0.9 % (0.0-5.0); MEAN CELL VOLUME 92.5 fL CALC (80.0-100.0); MEAN CORPUSCULAR HGB 27.4 pG CALC (26.0-32.0); MEAN CORPUSCULAR HGB CONC 29.6 g/dL CAL (32.0-36.0); NEUT# 13.33 thou/uL (2.00-7.15); RED BLOOD COUNT 4.96 mill/uL (4.20-5.60); RED CELL DISTRI WIDTH 14.3 % (11.5-15.5)
[2021-01-10 07:54] LABS: ALBUMIN 2.9 g/dL (3.2-5.0); ALKALINE PHOSPHATASE 73 u/l (38-126); ANION GAP 9 (6-22 (CALC)); BILIRUBIN, TOTAL 0.5 mg/dL (0.0-1.4); BUN 28 mg/dL (7-17); BUN/CREATININE RATIO 24 (12-20 (CALC)); CARBON DIOXIDE 31 mmol/l (22-30); CHLORIDE 112 mmol/l (95-108); CREATININE 1.2 mg/dL (0.5-1.0); GFR 51 ML/MIN (>=60 (CALC)); GFR FOR AFR.AMER. > 60 ML/MIN (>=60 (CALC)); POTASSIUM 4.5 mmol/l (3.5-5.1); SGOT/AST 19 u/l (14-36); SODIUM 147 mmol/l (137-146); TOTAL PROTEIN 5.9 g/dL (6.3-8.2)
--- NOTE | 2021-01-10 08:00 | NUR ---
PATIENT IS VENTED AND SEDATED. VITAL SIGNS ARE NORMAL. 2MM PERRLA BILAT. EYES. NO S/S OF DISTRESS AT THIS TIME. O2 SATS 92% VENT SETTINGS ARE DOCUMENTED. ORAL CARE PROVIDED, SUCTIONED NEEDED. NORMAL HEART SOUNDS. NORMAL SINUS RYTHEM ON THE MONITOR. CLEAR TO DIMINISHED LUNG SOUNDS. NO EDEMA PRESENT. CURRRENTLY REMAINS PRONE TO INCREASE O2 LEVELS. STRONG PULSES. SAEFTY MEASURES IN PACE. WILL CONTINUE TO MONITOR PER HOSPITAL'S POLICY.
--- NOTE | 2021-01-10 10:00 | NUR ---
PATIENT'S MOTHER CALLED, CODE PROVIDED, UPDATE WAS GIVEN.
--- NOTE | 2021-01-10 10:44 | NUR ---
[facility] CALLED BACK, REQUESTED A BRIEF REPORT FOR THEIR DOCTOR TO RUN THROUGH PRIOR TO GIVING AN ANSWER FOR A POSSIBLE TRANSFER.
--- NOTE | 2021-01-10 11:00 | NUR ---
TRIED TO REPOSITION PATIENT ON HER BACK, VITAL SIGNS INCREASED, WAS UNABLE TO PRONE.
--- NOTE | 2021-01-10 11:59 | NUR ---
[facility] CALLED BACK, STATED THEY ARE UNABLE TO TAKE THIS PATIENT TRANSFER DUE TO THEIR "LACK OF RESOURCES".
--- NOTE | 2021-01-10 14:44 | NUR ---
PATIENT HAS A [facility] MEMEBER WHO CALLED YESTERDAY AND TODAY REQUESTING INFORMATION ABOUT THE PATIENT BOTH TIMES I STATED I WAS UNABLE TO GIVE OUT INFORMATION WITHOUT PATIENT CODE, SHE STATED SHE DIDNT NEED IT BEFORE, TOLD HER ITS HOSPITAL'S POLICY. PHONE CALL ENDED.
--- NOTE | 2021-01-10 15:50 | NUR ---
no changes at this time. operations scheduler to monitor.
--- NOTE | 2021-01-10 16:15 | NUR ---
NO STAFF AVALIABLE AT THIS TIME TO FLIP PATIENT BACK ON HER BACK, WILL ATTEMPT AGAIN LATER ON THE SHIFT.
--- NOTE | 2021-01-10 18:07 | NUR ---
TRIED TO PUT PATIENT ON HER BACK, VITAL SIGNS WERE GOING UP BESIDES HER O2 LEVELS WERE DROPPING TO LOW 70'S, PATIENT WAS WAKING UP, SEDATION WAS TITRATED UP PER HOSPITAL'S POLICY TO SEDATE PATIENT PROPERLY. PATIENT RESTING COMFORTABLLY. VITAL SIGNS ARE NOW STABLE. STAFF WAS IN AGREEMENT TO HOLD OFF TURNING PATIENT OVER TILL LATER TONIGHT DUE TO THE SITUATION THAT JUST OCCURED. REPOSITIONED ARMS AND LEGS IN THE MEAN TIME.
--- NOTE | 2021-01-10 19:50 | NUR ---
pt intubated and sedated; no apparent distress noted at this time; limited assessment completed due to pt being proned; no s/sx of pain noted; no n/v noted at this time; pt repositioned to high left side for assessment; sclera edema noted; resp even and unlabored; lungs diminished; skin color wnl; vent intact and maintained with settings of AC mode, rate 30, peep 16.0, tv 420, 100% FiO2; o2 sat dropped to 88% with repositioning; hr reg; strong pulses; trace edema noted to ble; st on monitor; bilat scds intact; abd soft with bs hypoactive; no bm noted per race and sports book writer; ng tube intact; placement verified via air bolus; dk brown/greenish gastric content noted; tracy to gravity draining well; TLC flushed and patent to RIJ; brisk blood return noted; bleeding noted from site; bulky dressing present; versed gtt, propofol gtt and ivf infusing without complication; pt oral care provided with toothette; copious amounts of thick yellow sputum noted to multiple toothettes; rom to upper extremities; restraints reinforced; returned back to prone position; will continue to monitor
--- NOTE | 2021-01-10 21:02 | NUR ---
vented and sedated; no apparent distress noted; pm meds administered; #22 removed from lh with catheter tip intact; RIJ flushed and patent; restraints intact; will continue to monitor
--- NOTE | 2021-01-10 22:10 | NUR ---
multiple staff at bedside; RT at the [facility]; pt repositioned to supine at this time; tolerated very well; o2 sats dropped briefly to as low as 73%; quickly recoved to 88%; vent intact and maintained; partial bath administered; linens changes; tracy to gravity; facial edema noted; lips and eye lids very swollen; pupils reactive and equal; iv intact and versed and propofol gtt continues; staff remains at bedside to monitor closely;
--- NOTE | 2021-01-10 22:15 | NUR ---
propofol gtt titrated to 60mcg/kg/min d/t hypotension; will continue to monitor closely; oral care provided with nida; again, copious thick yellow substance removed from oral cavity; pt suctioned orally and via ETT; jingle writer remains at bedside; will continue to monitor
--- NOTE | 2021-01-10 22:31 | NUR ---
family called; passcode verified; update provided;
[2021-01-11] VITALS (30 sets, daily range): BP systolic 93–113; BP diastolic 55–78
--- NOTE | 2021-01-11 00:05 | NUR ---
vented and sedated; no apparent distress noted; iv intact and patent; propofol titrated; tracy to gravity; restraints released for repositioning/rom; oral care provided; st on monitor; pt relocated to ICU 1; will continue to monitor closely
--- NOTE | 2021-01-11 02:07 | NUR ---
intubated and sedated; st/sr on monitor; no apparent distress noted; vent intact and maintained; tracy to gravity; restraints; will continue to monitor
--- NOTE | 2021-01-11 03:00 | NUR ---
dressing to RIJ saturated with blood; dressing changed using electric meter technician; biopatch placed; four sterile 2x2s placed over biopatch; transparent dressing then applied; iv flushed and blood return noted; will continue to monitor
--- NOTE | 2021-01-11 04:00 | NUR ---
intubated and sedated; no apparent distress noted; resp unlabored; st on monitor; tracy to gravity; repositioned to left side; dressing noted bloody to RIJ; will continue to monitor
--- NOTE | 2021-01-11 06:01 | NUR ---
remains intubated and sedated; no apparent distress noted; repositioned; restraints continued; st on monitor;
--- NOTE | 2021-01-11 08:00 | NUR ---
patient is vented and sedated. 2mm perrla bilateral eyes. oral care provided. dry lips. green/yellow drainage from ng tube. vent settings documented. sedation continues. will be redressing her RIJ dressing. Dr. Alex stated yesterday that bleeding is normal given her condition. has a start of a skin blister on her chin, not open. clear to diminished lung sounds. edema trace on bilateral hands. edema on bilateral feet 1+ pitting. obese, soft abdomen. hypoactive bowel sounds. brusining on abdomen, related to lovenox injections. no edema on legs, scd's in place. normal heart sounds, st on monitor hr low 100's. rash on buttocks. hands and feet elevated on pillows. saftey measures in place. will continue to monitor per hospital's policy.
[2021-01-11 08:32] LABS: HEMATOCRIT 44.3 % (37.0-47.0); HEMOGLOBIN 13.1 g/dl (12.0-16.0); IMMATURE GRANULOCYTES 0.4 % (0.0-5.0); MEAN CELL VOLUME 93.7 fL CALC (80.0-100.0); MEAN CORPUSCULAR HGB 27.7 pG CALC (26.0-32.0); MEAN CORPUSCULAR HGB CONC 29.6 g/dL CAL (32.0-36.0); NEUT# 11.96 thou/uL (2.00-7.15); RED BLOOD COUNT 4.73 mill/uL (4.20-5.60); RED CELL DISTRI WIDTH 14.2 % (11.5-15.5)
[2021-01-11 08:47] LABS: ANION GAP 9 (6-22 (CALC)); BUN 29 mg/dL (7-17); BUN/CREATININE RATIO 25 (12-20 (CALC)); CARBON DIOXIDE 29 mmol/l (22-30); CHLORIDE 114 mmol/l (95-108); CREATININE 1.2 mg/dL (0.5-1.0); GFR 51 ML/MIN (>=60 (CALC)); GFR FOR AFR.AMER. > 60 ML/MIN (>=60 (CALC)); POTASSIUM 4.4 mmol/l (3.5-5.1); SODIUM 147 mmol/l (137-146)
[2021-01-11 08:51] LABS: PROTHROMBIN TIME 10.6 SECONDS (9.0-12.5)
--- NOTE | 2021-01-11 10:00 | NUR ---
patient's mother and father called, requested an update, code provided, update given.
--- NOTE | 2021-01-11 12:00 | NUR ---
DR. MOCTEZUMA STATED TO START TUBE FEEDINGS, PATIENT MAY NOT TOLERATE THE FEEDINGS AT THIS TIME DUE TO THE VENT SETTINGS. PLACED DIETARY CONSULT IN JUST IN CASE, ANTHONY'S NURSE CAN TALK IT OVER WITH EACH OTHER ABOUT WHAT WOULD BE BEST FOR THE PATIENT SINCE DIETITIAN IS NOT HERE TODAY.
--- NOTE | 2021-01-11 14:00 | NUR ---
TRANSFERRED PATIENT TO AIR MATTRESS. WAS UNABLE TO PRONE PATIENT DUE TO LACK OF SUPPLIES, WAS UNABLE TO FIND A PRONING PILLOW.
--- NOTE | 2021-01-11 17:05 | NUR ---
PATIENT'S COUSIN USAMA PROVIDED PATIENT CODE, UPDATE WAS GIVEN.
--- NOTE | 2021-01-11 18:19 | NUR ---
TITRATION OF DRIPS DONE PER PROTOCOL.
--- NOTE | 2021-01-11 18:59 | NUR ---
PT CARE RESUMED FROM RICHARD CARLSON. AT THIS TIME. PT VSS BP IS 119/85 HR 103 SPO2 IS 89%. PT REMAINS SEDATED ON PROPOFOL AT 45MCG/HR AND VERSED AT 4MG/HR. ET TUBE IN PLACE AND SECURED AT THE 23CM LIP LINE WITH OG TUBE DRAINING BILE AT LIWS. PT GIVEN ORAL CARE, LOTION APPLIED TO LEGS AND FEET. SMAL RANGE OF MOTION EXERCISES PREFORMED. PT REMAINS ON AIR PRESSURE MATTRESS, DID NOT TURN OR REPOSITION. PT TOLERATED WELL WITH INCREASE OF SATURATION TO 94% SPO2. RESTRAINTS RE-ASSESSED AND TWO FINGER WIDTH SPACE REMAINS. LOTION APPLIED TO PATIENTS HANDS AT THIS TIME, WITH ROM EXERCISES PREFORMED. WILL CONTINUE TO MONITOR CLOSELY.
--- NOTE | 2021-01-11 22:52 | NUR ---
SEDATED. ORAL ETT SECURE. RESECURED NG TUBE DRAINING DARK GREEN LIQUID TO MEDIUM INTERMITTENT SUCTION. RODRIGUEZ TO BSD DRAINING CLOUDY YELLOW URINE. WRIST RESTRAINTS SECURE AND NON-CONSTRICTIVE. SCD'S IN PLACE AND OPERATIONAL. IV'S INFUSING VIA PUMPS WITHOUT PROBLEM. CVL RIJ WITH BLOODY DRAINAGE AT INSERTION SITE. VSS. VENT SETTINGS FIO2 100% VT 420 A/C 30 PEEP 16. ETT SEDURED AT 23 CM LIP LINE. LUNGS CLEAR TO AUSCULTATION. ACTIVE BOWEL SOUNDS. MONITOR SHOWS SINUS TACH AT 101. TEMP 98. BP 127/83. SAO2 93%. DISTAL PULSES PALPABLE.
[2021-01-12] VITALS (22 sets, daily range): BP systolic 119–176; BP diastolic 76–113
--- NOTE | 2021-01-12 00:28 | NUR ---
SAO2 DECREASED REPOSITIONED AND SUCTIONED. NO SECRETIONS.
--- NOTE | 2021-01-12 00:34 | NUR ---
SAO2 NOW 89% UP FROM 84%.
[2021-01-12 05:11] LABS: HEMATOCRIT 43.1 % (37.0-47.0); HEMOGLOBIN 12.8 g/dl (12.0-16.0); IMMATURE GRANULOCYTES 0.6 % (0.0-5.0); MEAN CELL VOLUME 92.7 fL CALC (80.0-100.0); MEAN CORPUSCULAR HGB 27.5 pG CALC (26.0-32.0); MEAN CORPUSCULAR HGB CONC 29.7 g/dL CAL (32.0-36.0); NEUT# 7.65 thou/uL (2.00-7.15); RED BLOOD COUNT 4.65 mill/uL (4.20-5.60)
[2021-01-12 05:30] LABS: ANION GAP 10 (6-22 (CALC)); BUN 30 mg/dL (7-17); BUN/CREATININE RATIO 27 (12-20 (CALC)); CARBON DIOXIDE 27 mmol/l (22-30); CHLORIDE 116 mmol/l (95-108); CREATININE 1.1 mg/dL (0.5-1.0); GFR 57 ML/MIN (>=60 (CALC)); GFR FOR AFR.AMER. > 60 ML/MIN (>=60 (CALC)); POTASSIUM 4.3 mmol/l (3.5-5.1); SODIUM 148 mmol/l (137-146)
--- NOTE | 2021-01-12 06:50 | NUR ---
ASSUMED CARE OF PT AFTER BEDSIDE REPORT FROM RICHARD PINEDA. PT INTUBATED AND SEDATED. VSS, NO S/S OF DISTRESS NOTED, GTTS INFUSING PER EMAR.
[2021-01-12 09:51] LABS: D-DIMER 2.25 mg/L (0.19-0.60)
[2021-01-12 09:56] LABS: PROTHROMBIN TIME 10.5 SECONDS (9.0-12.5)
--- NOTE | 2021-01-12 10:30 | NUR ---
PT STARTED COUGHING ON VENT WHILE SEDATED, IN LINE SUCTION PASSED, SMALL BLOODY SPUTUM SUCTIONED. O2 SATS DROPPED TO 64% DURING EPISODE. SATS RECOVERED TO 895 WITH IN MINUTES. RT INFORMED.
--- NOTE | 2021-01-12 12:25 | NUR ---
PT HAD A SECOND EPISODE OF COUGHING WITH IN LINE SUCTION PASSED WITH SMALL AMOUNT OF BLOOD TINGED SPUTUM SUCTIONED. O2 SATS AGAIN DROPPED INTO 70S WITH A QUICK RECOVERY TO 89%, RT AND INFORMED
--- NOTE | 2021-01-12 13:51 | NUR ---
PT MEDICATED FOR PAIN AFTER DISCUSSING INCREASING HR AND BP WITH MD. VS ARE NOW WNL.
--- NOTE | 2021-01-12 17:05 | NUR ---
PT MEDICATED WITH PRN MEDICATION PER EMAR FOR ELEVATED BP.
--- NOTE | 2021-01-12 18:00 | NUR ---
MEDICATED PER EMAR FOR ELEVATED HR
--- NOTE | 2021-01-12 19:25 | NUR ---
patient lays in semi-plaza's position. nurse assessment performed, see charting. hr 120's, sinus tachycardia, sbp 160's, spo2 87%. fentanyl provided per orders. patient is mechanically vented, settings are as follows: peep 16, fio2 100%, tidal volume 420, rate 30. has a r-nare ng tube on lis, bile is green-yellow. mouth care provided, suctioned moderate amount of saliva/phlegh from mouth, white.cloudy/thick. no phlegm from et tube. has a tracy catheter, yellow/sediment ua noted. no movement noted with painful stimuli. has a rij triple lumen, all lumens flush and return blood properly, small amount of blood noted on dressing and pressure dressing, will continue to monitor. air matress intact. scd's removed and placed back on for assessment. does have generalized edema noted on extremeties. no bm noted. extremeties elevated with pillows. hob 30 degrees. propofol and versed infusing properly.
--- NOTE | 2021-01-12 21:03 | NUR ---
VENT ALARMING, PATIENT WAS WHAT LOOKED LIKE SHE WAS COUGHING, SPO2 DROPPED TO 85% AND PICKED UP TO 91% AFTER SHE STOPPED WITH COUGHING.
--- NOTE | 2021-01-12 21:19 | NUR ---
BEDTIME MEDICATIONS PROVIDED. MOUTH SUCTIONED. RESP RATE 31, SPO2 91%, SINUS TACHYCARDIA 117 BPM, BP 138/79 MMHG. WILL CONTINUE TO MONITOR.
--- NOTE | 2021-01-12 23:25 | NUR ---
PATIENT BEGINS TO COUGH AGAIN, SPO2 LOW 80'S. PATIENT WAS MOUTH AND ET TUBE SUCTIONED. WHEN SUCTIONING ET PATIENT BEGINS TO COUGH. RT WADNER WAS ASKE DTO PROVIDE LAVAGE. RT IN ROOM NOW PROVIDING SUCTIONING AND CHANGING HME FILTER.
--- NOTE | 2021-01-12 23:59 | NUR ---
IV LOPRESSOR PROVIDED PER PARAMATERS/ORDERS, HR 120, SINUS TACHYCARDIA. IV ANTIBIOTIC INFUSING NOW. SPO2 87%-88%, RESP RATE 32. WILL CONTINUE TO MONITORR.
[2021-01-13] VITALS (15 sets, daily range): BP systolic 111–173; BP diastolic 69–100
--- NOTE | 2021-01-13 01:23 | NUR ---
patient lays with hob about 20 degrees. mouth care provided, scant amount of saliva from mouth noted. patient did cough and move her mouth while suctioning et tube. air matress intact rotates q10 minutes. no bm noted. ng tube intact at lis. tracy catheter intact. st 107 bpm, spo2 89%, bp 150/95 mmhg, resp rate 30. will continue to monitor.
--- NOTE | 2021-01-13 03:04 | NUR ---
patient desats to 85%, mouth and et tube suctioned, no phlegm noted. head repositioned. hob 30 degrees. new pulse oximeter placed to right middle finger. spo2 now 90%-91%, resp rate 32. fentanyl iv was also provided. bp 111/69 mmhg. sr, hr high 90's. will continue to monitor.
--- NOTE | 2021-01-13 04:30 | NUR ---
[facility] TRIPLE LUMEN DRESSING WAS CHANGED DUE TO SOILED WITH BLOOD, SMALL AMOUNT OF BLOOD NOTED. BLOOD DRAWN FROM [facility] FOR AM LABS. AFEBRILE, SPO2 UP TO 95%. MOUTH ACRE PROVIDED WELL SUCTIONING, NO PHLEGM NOTED. HOB 30 DEGREES. BP WNL. SR-ST ON TELEMETRY, HEART RATE HIGH 90'S TO LOW 100'S. WILL CONTINUE TO MONITOR.
[2021-01-13 04:53] LABS: HEMATOCRIT 40.5 % (37.0-47.0); MEAN CELL VOLUME 92.5 fL CALC (80.0-100.0); MEAN CORPUSCULAR HGB 27.4 pG CALC (26.0-32.0); MEAN CORPUSCULAR HGB CONC 29.6 g/dL CAL (32.0-36.0); RED BLOOD COUNT 4.38 mill/uL (4.20-5.60); RED CELL DISTRI WIDTH 13.9 % (11.5-15.5)
[2021-01-13 05:05] LABS: ANION GAP 7 (6-22 (CALC)); BUN 23 mg/dL (7-17); BUN/CREATININE RATIO 25 (12-20 (CALC)); CARBON DIOXIDE 31 mmol/l (22-30); CHLORIDE 113 mmol/l (95-108); CREATININE 0.9 mg/dL (0.5-1.0); GFR > 60 ML/MIN (>=60 (CALC)); GFR FOR AFR.AMER. > 60 ML/MIN (>=60 (CALC)); MAGNESIUM 2.1 mg/dL (1.6-2.3); POTASSIUM 4.1 mmol/l (3.5-5.1); SODIUM 147 mmol/l (137-146)
--- NOTE | 2021-01-13 05:20 | NUR ---
WHOLESALE REPRESENTATIVE ASSISTED WITH CXR.
--- NOTE | 2021-01-13 05:25 | NUR ---
RT IN ROOM FOR ABG.
--- NOTE | 2021-01-13 06:22 | NUR ---
IENT LAYS WITH HOB 30 DEGREES. ANTIBIOTIC INFUSING NOW. ST, 105 BPM ON TELEMETRY. BP 140'S SYSTOLIC. RESP RATE 33, SPO2 93%.
--- NOTE | 2021-01-13 08:05 | NUR ---
PATIENT VENTED AND RESTING COMFORTABLY. VITALS WNL BP 116/77 HR 98 O2 93 PERCENT.
--- NOTE | 2021-01-13 11:16 | NUR ---
SPOKE WITH [facility] ON PT , GAVE PTS CURRENT VENT SETTING, VS, AND GTT STATUS
--- NOTE | 2021-01-13 11:55 | NUR ---
BG 161 FOR REJI WANG
--- NOTE | 2021-01-13 13:27 | NUR ---
CALLED REPORT TO [facility] 5B BED 4, RICHARD ABEL FOR PT TRANSFER
--- NOTE | 2021-01-13 13:37 | NUR ---
ANGELO, PT FATHER NOTIFIED OF TRANSFERRED
--- NOTE | 2021-01-13 14:43 | NUR ---
pt left room for transfer via [facility] [place] [facility]
== END 2021-01-13 14:43 | disposition short-term general hospital (02) | DRG 208 ==
LOC: ED 19:34 → EDBD 19:34 → ED 21:03 → ICU 21:39
PROVIDERS: Family Medicine; Hospitalist; Internal Medicine; ADMIT Internal Medicine; ATTEND Internal Medicine
PROC: XW033E5 Introduction of Remdesivir Anti-infective into Peripheral Vein, Percutaneous Approach, New Technology Group 5 (ICD-10-PCS; principal; 2020-12-29)
PROC: 5A09457 Assistance with Respiratory Ventilation, 24-96 Consecutive Hours, Continuous Positive Airway Pressure (ICD-10-PCS; 2020-12-29)
PROC: 5A12012 Performance of Cardiac Output, Single, Manual (ICD-10-PCS; 2021-01-06)
PROC: 02HV33Z Insertion of Infusion Device into Superior Vena Cava, Percutaneous Approach (ICD-10-PCS; 2021-01-09)
PROC: 5A1945Z Respiratory Ventilation, 24-96 Consecutive Hours (ICD-10-PCS; 2021-01-09)
PROC: 0BH17EZ Insertion of Endotracheal Airway into Trachea, Via Natural or Artificial Opening (ICD-10-PCS; 2021-01-09)
DX: U07.1 COVID-19 (principal); J12.82 Pneumonia due to coronavirus disease 2019; J96.01 Acute respiratory failure with hypoxia; I46.9 Cardiac arrest, cause unspecified; E87.1 Hypo-osmolality and hyponatremia; N17.9 Acute kidney failure, unspecified; T82.838A Hemorrhage due to vascular prosthetic devices, implants and grafts, initial encounter; J95.859 Other complication of respirator [ventilator]; I10 Essential (primary) hypertension; E11.9 Type 2 diabetes mellitus without complications; E87.6 Hypokalemia; E66.9 Obesity, unspecified; Y83.8 Other surgical procedures as the cause of abnormal reaction of the patient, or of later complication, without mention of misadventure at the time of the procedure; Y84.8 Other medical procedures as the cause of abnormal reaction of the patient, or of later complication, without mention of misadventure at the time of the procedure; Z68.35 Body mass index [BMI] 35.0-35.9, adult
CPT/HCPCS: J1650; J2060; J2250; J3262; Q3014; S0164